=== PATIENT | male | born 1945 | race African-American/Black ===

== ENCOUNTER 2017-08-29 17:03 | Inpatient (IN) ==
[2017-08-29] MEDS ORDERED: Sod Chloride 0.9% Inj 1,000 ML IV.SIG ONE (22:24)
[2017-08-29] MEDS ORDERED: Morphine Inj 4 MG/ML Vial IV.PUSH ONE (22:24)
--- NOTE | 2017-08-29 22:35 | ED ---
HPI General Chief Complaint: Abdominal Pain Stated Complaint: L flank Pian Time Seen by Provider: 08/29/17 22:14 Source: patient Mode of arrival: ambulatory Limitations: no limitations History of Present Illness HPI narrative: 72-year-old black male history of IDDM, hypertension, hypercholesterolemia, and chronic renal failure stage III, and history of kidney stones in the past. Patient presents with a sudden onset of left flank pain which started earlier this morning. He states the pain is a 10/10. There is no exacerbating or alleviating factors. He has had associated nausea and vomiting. He denies any radiation of pain. He denies any abdominal or pelvic pain. No testicular pain. No hematuria. He does have some chronic urinary frequency but has had no dysuria. Patient has had a somewhat decreased appetite. MD complaint: flank pain (Left) Onset (ago): hour(s) Pain Consistency: constant Location: L flank Severity: severe Severity scale (1-10): 10 Quality: stabbing and sharp Radiation: none Migration to: no migration Relieving factors: nothing Exacerbating factors: nothing Associated symptoms: nausea and vomiting Related Data Home Medications Medication Instructions Recorded Confirmed albiglutide [Tanzeum] 50 mg SUB-Q Q7D 08/29/17 08/29/17 amlodipine 10 mg PO DAILY 08/29/17 08/29/17 atenolol 100 mg PO DAILY 08/29/17 08/29/17 empagliflozin [Jardiance] 25 mg PO DAILY 08/29/17 08/29/17 lisinopril 40 mg PO DAILY 08/29/17 08/29/17 pravastatin 10 mg PO HS 08/29/17 08/30/17 clonidine HCl 0.2 mg PO BID 08/30/17 08/30/17 glimepiride 4 mg PO BID 08/30/17 08/30/17 Previous Rx's Medication Instructions Recorded levofloxacin [Levaquin] 500 mg PO DAILY #7 tab 09/05/17 Allergies Allergy/AdvReac Type Severity Reaction Status Date / Time No Known Allergies Allergy Unverified 08/29/17 17:22 Review of Systems ROS Unobtainable All other systems reviewed negative except as stated [facility] Social History Social History Substance History: No History of Abuse Second Hand Smoke Exposure: Yes Smoking Status: Never smoker How Often Do You Have a Drink Containing Alcohol: Never Recent Travel in [facility] within the Last 8 Weeks: No Recent Out of Country Travel within the Last 8 Weeks: No Immunization History Tetanus Immunization: <5 Years Hx Influenza Vaccine This Season: Yes Exam Narrative Exam Narrative: GENERAL: Well-developed, well-nourished in no acute distress. Nontoxic appearing. Patient appears to have mild pain. Skin: Patient is somewhat clammy to touch. HEAD: Normocephalic, atraumatic. EYES: Pupils equal round and reactive. Extraocular motions intact. No scleral icterus. No injection or drainage. ENT: TMs clear without erythema. The external auditory canals clear. Nose: clear . Posterior pharynx is pink and moist. No tonsillar edema or exudate. Uvula midline. Airway patent. NECK: Trachea midline.Supple, nontender, moves head freely. No central bony tenderness or spasm. CARDIOVASCULAR: Regular rate and rhythm without murmurs, gallops, or rubs. RESPIRATORY: Clear to auscultation. Breath sounds equal bilaterally. No wheezes , rales, or rhonchi. GASTROINTESTINAL: Abdomen soft, non-tender, nondistended. No hepato-splenomegaly , or palpable masses. No guarding. EXTREMITIES: No clubbing, cyanosis, or edema. No joint tenderness, effusion, or edema noted. BACK: Nontender without deformity or crepitance. No flank tenderness. Course Hospital Course: EKG: Sinus tachycardia with a ventricular rate of 119. Old inferior wall Q waves consistent with possible old [place]. No abnormal ST elevation. Normal IN and QT interval. Initial Documented Vital Signs Temperature 99.1 F 08/29/17 17:15 Pulse Rate 87 08/29/17 17:15 Respiratory Rate 16 08/29/17 17:15 Blood Pressure 159/79 H 08/29/17 17:15 Pulse Oximetry 99 08/29/17 17:15 Last Documented Vital Signs Temperature 98.3 F 09/05/17 12:15 Pulse Rate 90 09/05/17 12:15 Respiratory Rate 18 09/05/17 12:15 Blood Pressure 129/69 09/05/17 12:15 Pulse Oximetry 98 09/05/17 12:15 Medical Decision Making Differential Diagnosis Differential Diagnosis: Differential diagnosis: Ureterolithiasis, nephrolithiasis, intra-abdominal process, electrolyte abnormality, infection Lab Data Result diagrams: 09/05/17 06:10 09/05/17 06:10 Lab Results 08/29/17 08/29/17 08/29/17 Range/Units 22:41 22:41 23:00 WBC 17.2 H (4.0-11.0) th/mm3 RBC 5.09 (4.50-5.90) mil/mm3 Hgb 14.8 (13.0-17.0) gm/dL Hct 44.4 (39.0-51.0) % MCV 87.2 (80.0-100.0) fL MCH 29.1 (27.0-34.0) pg MCHC 33.3 (32.0-36.0) % RDW 13.4 (11.6-17.2) % Plt Count 261 (150-450) th/mm3 MPV 8.8 (7.0-11.0) fL Prelim Diff (Auto) Slide review pending Neut % (Auto) 97.3 H (16.0-70.0) % Lymph % (Auto) 1.1 L (9.0-44.0) % [place] % (Auto) 1.3 (0.0-8.0) % Eos % (Auto) 0.0 (0.0-4.0) % Baso % (Auto) 0.3 (0.0-2.0) % Neut # (Auto) 16.7 H (1.8-7.7) th/mm3 Lymph # (Auto) 0.2 L (1.0-4.8) th/mm3 [place] # (Auto) 0.2 (0.0-0.9) th/mm3 Eos # (Auto) 0.0 (0.0-0.4) th/mm3 Baso # (Auto) 0.0 (0.0-0.2) th/mm3 WBC Differential Manual diff final Diff Scan Seg Neuts % (Manual) 85 H (16-70) % Band Neuts % (Manual) 10 H (0-6) % Lymphocytes % (Manual) 1 L (9-44) % Monocytes % (Manual) 4 (0-8) % Basophils % (Manual) (0-2) % Metamyelocytes % (Man) (0-1) % Myelocytes % (Man) (0-0) % Abs Neuts (Manual) 16.3 H (1.8-7.7) th/mm3 Differential Comment . Platelet Estimate Normal (Normal) Platelet Morphology Normal (Normal) RBC Morphology Normal (Normal) Sodium 145 (136-145) meq/L Potassium 3.8 (3.5-5.1) meq/L Chloride 112 H (98-107) meq/L Carbon Dioxide 17.7 L (21.0-32.0) meq/L Anion Gap 15 (5-15) meq/L BUN 24 H (7-18) mg/dL Creatinine 2.36 H (0.60-1.30) mg/dL Estimated GFR 33 L (>89) mL/min POC Glucose (68-110) mg/dl Random Glucose 201 H (74-106) mg/dL Calcium 9.6 (8.5-10.1) mg/dL Prot Corrected Calcium (8.5-10.1) mg/dL Magnesium (1.5-2.5) mg/dL Total Bilirubin 0.8 (0.2-1.0) mg/dL AST 25 (15-37) U/L ALT 45 (12-78) U/L Alkaline Phosphatase 112 (45-117) U/L Total Protein 8.1 (6.4-8.2) g/dL Albumin 3.8 (3.4-5.0) g/dL Lipase 244 (73-393) U/L Urine Color Yellow (Yellw/Straw) Urine Clarity Hazy H (Clear) Urine pH 5.0 (5.0-8.5) Ur Specific [place] 1.015 (1.002-1.035) Urine Protein Negative (Neg-Trace) mg/dL Urine Glucose (UA) 500 or greater (Negative) mg/dL Urine Ketones Trace (Negative) mg/dL Urine Occult Blood Large H (Negative) Urine Nitrate Negative (Negative) Urine Bilirubin Negative (Negative) Urine Urobilinogen Less than 2 (Less than 2) mg/dL Ur Leukocyte Esterase Trace H (Negative) Urine RBC 44 H (0-3) /hpf Urine WBC 23 H (0-5) /hpf Ur Squamous Epith Cells 1 (0-5) /hpf Urine Bacteria Rare H (None) /hpf Urine Mucus Few H (Occasional) /lpf Micro UA Comment Culture indicated Urine Culture Comments Culture indicated 08/30/17 08/30/17 08/30/17 Range/Units 09:40 09:40 16:44 WBC 25.6 H (4.0-11.0) th/mm3 RBC 4.93 (4.50-5.90) mil/mm3 Hgb 15.1 (13.0-17.0) gm/dL Hct 44.1 (39.0-51.0) % MCV 89.4 (80.0-100.0) fL MCH 30.6 (27.0-34.0) pg MCHC 34.3 (32.0-36.0) % RDW 14.0 (11.6-17.2) % Plt Count 268 (150-450) th/mm3 MPV 8.8 (7.0-11.0) fL Prelim Diff (Auto) Manual diff required Neut % (Auto) (16.0-70.0) % Lymph % (Auto) (9.0-44.0) % [place] % (Auto) (0.0-8.0) % Eos % (Auto) (0.0-4.0) % Baso % (Auto) (0.0-2.0) % Neut # (Auto) (1.8-7.7) th/mm3 Lymph # (Auto) (1.0-4.8) th/mm3 [place] # (Auto) (0.0-0.9) th/mm3 Eos # (Auto) (0.0-0.4) th/mm3 Baso # (Auto) (0.0-0.2) th/mm3 WBC Differential Manual diff final Diff Scan Seg Neuts % (Manual) 62 (16-70) % Band Neuts % (Manual) 36 H (0-6) % Lymphocytes % (Manual) 2 L (9-44) % Monocytes % (Manual) (0-8) % Basophils % (Manual) (0-2) % Metamyelocytes % (Man) (0-1) % Myelocytes % (Man) (0-0) % Abs Neuts (Manual) 25.1 H (1.8-7.7) th/mm3 Differential Comment . Platelet Estimate Normal (Normal) Platelet Morphology Normal (Normal) RBC Morphology Normal (Normal) Sodium 151 H (136-145) meq/L Potassium 3.7 (3.5-5.1) meq/L Chloride 119 H (98-107) meq/L Carbon Dioxide 18.9 L (21.0-32.0) meq/L Anion Gap 13 (5-15) meq/L BUN 23 H (7-18) mg/dL Creatinine 2.25 H (0.60-1.30) mg/dL Estimated GFR 35 L (>89) mL/min POC Glucose 320 H (68-110) mg/dl Random Glucose 184 H (74-106) mg/dL Calcium 7.4 L* D (8.5-10.1) mg/dL Prot Corrected Calcium 7.7 L (8.5-10.1) mg/dL Magnesium (1.5-2.5) mg/dL Total Bilirubin (0.2-1.0) mg/dL AST (15-37) U/L ALT (12-78) U/L Alkaline Phosphatase (45-117) U/L Total Protein 6.6 D (6.4-8.2) g/dL Albumin (3.4-5.0) g/dL Lipase (73-393) U/L Urine Color (Yellw/Straw) Urine Clarity (Clear) Urine pH (5.0-8.5) Ur Specific [place] (1.002-1.035) Urine Protein (Neg-Trace) mg/dL Urine Glucose (UA) (Negative) mg/dL Urine Ketones (Negative) mg/dL Urine Occult Blood (Negative) Urine Nitrate (Negative) Urine Bilirubin (Negative) Urine Urobilinogen (Less than 2) mg/dL Ur Leukocyte Esterase (Negative) Urine RBC (0-3) /hpf Urine WBC (0-5) /hpf Ur Squamous Epith Cells (0-5) /hpf Urine Bacteria (None) /hpf Urine Mucus (Occasional) /lpf Micro UA Comment Urine Culture Comments 08/30/17 08/31/17 08/31/17 Range/Units 21:02 03:55 05:21 WBC 35.8 H (4.0-11.0) th/mm3 RBC 4.65 (4.50-5.90) mil/mm3 Hgb 13.6 (13.0-17.0) gm/dL Hct 41.4 (39.0-51.0) % MCV 89.1 (80.0-100.0) fL MCH 29.2 (27.0-34.0) pg MCHC 32.8 (32.0-36.0) % RDW 13.8 (11.6-17.2) % Plt Count 209 (150-450) th/mm3 MPV 9.1 (7.0-11.0) fL Prelim Diff (Auto) Slide review pending Neut % (Auto) 94.0 H (16.0-70.0) % Lymph % (Auto) 2.8 L (9.0-44.0) % [place] % (Auto) 3.1 (0.0-8.0) % Eos % (Auto) 0.0 (0.0-4.0) % Baso % (Auto) 0.1 (0.0-2.0) % Neut # (Auto) 33.7 H (1.8-7.7) th/mm3 Lymph # (Auto) 1.0 (1.0-4.8) th/mm3 [place] # (Auto) 1.1 H (0.0-0.9) th/mm3 Eos # (Auto) 0.0 (0.0-0.4) th/mm3 Baso # (Auto) 0.0 (0.0-0.2) th/mm3 WBC Differential Manual diff final Diff Scan Seg Neuts % (Manual) 56 (16-70) % Band Neuts % (Manual) 36 H (0-6) % Lymphocytes % (Manual) 4 L (9-44) % Monocytes % (Manual) 3 (0-8) % Basophils % (Manual) (0-2) % Metamyelocytes % (Man) 1 (0-1) % Myelocytes % (Man) (0-0) % Abs Neuts (Manual) 33.3 H (1.8-7.7) th/mm3 Differential Comment . Platelet Estimate Normal (Normal) Platelet Morphology Normal (Normal) RBC Morphology Normal (Normal) Sodium (136-145) meq/L Potassium (3.5-5.1) meq/L Chloride (98-107) meq/L Carbon Dioxide (21.0-32.0) meq/L Anion Gap (5-15) meq/L BUN (7-18) mg/dL Creatinine (0.60-1.30) mg/dL Estimated GFR (>89) mL/min POC Glucose 206 H 160 H (68-110) mg/dl Random Glucose (74-106) mg/dL Calcium (8.5-10.1) mg/dL Prot Corrected Calcium (8.5-10.1) mg/dL Magnesium (1.5-2.5) mg/dL Total Bilirubin (0.2-1.0) mg/dL AST (15-37) U/L ALT (12-78) U/L Alkaline Phosphatase (45-117) U/L Total Protein (6.4-8.2) g/dL Albumin (3.4-5.0) g/dL Lipase (73-393) U/L Urine Color (Yellw/Straw) Urine Clarity (Clear) Urine pH (5.0-8.5) Ur Specific [place] (1.002-1.035) Urine Protein (Neg-Trace) mg/dL Urine Glucose (UA) (Negative) mg/dL Urine Ketones (Negative) mg/dL Urine Occult Blood (Negative) Urine Nitrate (Negative) Urine Bilirubin (Negative) Urine Urobilinogen (Less than 2) mg/dL Ur Leukocyte Esterase (Negative) Urine RBC (0-3) /hpf Urine WBC (0-5) /hpf Ur Squamous Epith Cells (0-5) /hpf Urine Bacteria (None) /hpf Urine Mucus (Occasional) /lpf Micro UA Comment Urine Culture Comments 08/31/17 08/31/17 08/31/17 Range/Units 05:21 08:30 11:46 WBC (4.0-11.0) th/mm3 RBC (4.50-5.90) mil/mm3 Hgb (13.0-17.0) gm/dL Hct (39.0-51.0) % MCV (80.0-100.0) fL MCH (27.0-34.0) pg MCHC (32.0-36.0) % RDW (11.6-17.2) % Plt Count (150-450) th/mm3 MPV (7.0-11.0) fL Prelim Diff (Auto) Neut % (Auto) (16.0-70.0) % Lymph % (Auto) (9.0-44.0) % [place] % (Auto) (0.0-8.0) % Eos % (Auto) (0.0-4.0) % Baso % (Auto) (0.0-2.0) % Neut # (Auto) (1.8-7.7) th/mm3 Lymph # (Auto) (1.0-4.8) th/mm3 [place] # (Auto) (0.0-0.9) th/mm3 Eos # (Auto) (0.0-0.4) th/mm3 Baso # (Auto) (0.0-0.2) th/mm3 WBC Differential Diff Scan Seg Neuts % (Manual) (16-70) % Band Neuts % (Manual) (0-6) % Lymphocytes % (Manual) (9-44) % Monocytes % (Manual) (0-8) % Basophils % (Manual) (0-2) % Metamyelocytes % (Man) (0-1) % Myelocytes % (Man) (0-0) % Abs Neuts (Manual) (1.8-7.7) th/mm3 Differential Comment Platelet Estimate (Normal) Platelet Morphology (Normal) RBC Morphology (Normal) Sodium 147 H (136-145) meq/L Potassium 4.0 (3.5-5.1) meq/L Chloride 112 H (98-107) meq/L Carbon Dioxide 22.9 (21.0-32.0) meq/L Anion Gap 12 (5-15) meq/L BUN 38 H (7-18) mg/dL Creatinine 3.27 H (0.60-1.30) mg/dL Estimated GFR 23 L (>89) mL/min POC Glucose 123 H 255 H (68-110) mg/dl Random Glucose 127 H (74-106) mg/dL Calcium 8.7 D (8.5-10.1) mg/dL Prot Corrected Calcium (8.5-10.1) mg/dL Magnesium (1.5-2.5) mg/dL Total Bilirubin (0.2-1.0) mg/dL AST (15-37) U/L ALT (12-78) U/L Alkaline Phosphatase (45-117) U/L Total Protein (6.4-8.2) g/dL Albumin (3.4-5.0) g/dL Lipase (73-393) U/L Urine Color (Yellw/Straw) Urine Clarity (Clear) Urine pH (5.0-8.5) Ur Specific [place] (1.002-1.035) Urine Protein (Neg-Trace) mg/dL Urine Glucose (UA) (Negative) mg/dL Urine Ketones (Negative) mg/dL Urine Occult Blood (Negative) Urine Nitrate (Negative) Urine Bilirubin (Negative) Urine Urobilinogen (Less than 2) mg/dL Ur Leukocyte Esterase (Negative) Urine RBC (0-3) /hpf Urine WBC (0-5) /hpf Ur Squamous Epith Cells (0-5) /hpf Urine Bacteria (None) /hpf Urine Mucus (Occasional) /lpf Micro UA Comment Urine Culture Comments 08/31/17 08/31/17 08/31/17 Range/Units 17:10 19:55 21:13 WBC (4.0-11.0) th/mm3 RBC (4.50-5.90) mil/mm3 Hgb (13.0-17.0) gm/dL Hct (39.0-51.0) % MCV (80.0-100.0) fL MCH (27.0-34.0) pg MCHC (32.0-36.0) % RDW (11.6-17.2) % Plt Count (150-450) th/mm3 MPV (7.0-11.0) fL Prelim Diff (Auto) Neut % (Auto) (16.0-70.0) % Lymph % (Auto) (9.0-44.0) % [place] % (Auto) (0.0-8.0) % Eos % (Auto) (0.0-4.0) % Baso % (Auto) (0.0-2.0) % Neut # (Auto) (1.8-7.7) th/mm3 Lymph # (Auto) (1.0-4.8) th/mm3 [place] # (Auto) (0.0-0.9) th/mm3 Eos # (Auto) (0.0-0.4) th/mm3 Baso # (Auto) (0.0-0.2) th/mm3 WBC Differential Diff Scan Seg Neuts % (Manual) (16-70) % Band Neuts % (Manual) (0-6) % Lymphocytes % (Manual) (9-44) % Monocytes % (Manual) (0-8) % Basophils % (Manual) (0-2) % Metamyelocytes % (Man) (0-1) % Myelocytes % (Man) (0-0) % Abs Neuts (Manual) (1.8-7.7) th/mm3 Differential Comment Platelet Estimate (Normal) Platelet Morphology (Normal) RBC Morphology (Normal) Sodium 146 H (136-145) meq/L Potassium 4.1 (3.5-5.1) meq/L Chloride 113 H (98-107) meq/L Carbon Dioxide 23.1 (21.0-32.0) meq/L Anion Gap 10 (5-15) meq/L BUN 37 H (7-18) mg/dL Creatinine 2.67 H (0.60-1.30) mg/dL Estimated GFR 29 L (>89) mL/min POC Glucose 225 H 218 H (68-110) mg/dl Random Glucose 214 H (74-106) mg/dL Calcium 8.9 (8.5-10.1) mg/dL Prot Corrected Calcium (8.5-10.1) mg/dL Magnesium (1.5-2.5) mg/dL Total Bilirubin (0.2-1.0) mg/dL AST (15-37) U/L ALT (12-78) U/L Alkaline Phosphatase (45-117) U/L Total Protein (6.4-8.2) g/dL Albumin (3.4-5.0) g/dL Lipase (73-393) U/L Urine Color (Yellw/Straw) Urine Clarity (Clear) Urine pH (5.0-8.5) Ur Specific [place] (1.002-1.035) Urine Protein (Neg-Trace) mg/dL Urine Glucose (UA) (Negative) mg/dL Urine Ketones (Negative) mg/dL Urine Occult Blood (Negative) Urine Nitrate (Negative) Urine Bilirubin (Negative) Urine Urobilinogen (Less than 2) mg/dL Ur Leukocyte Esterase (Negative) Urine RBC (0-3) /hpf Urine WBC (0-5) /hpf Ur Squamous Epith Cells (0-5) /hpf Urine Bacteria (None) /hpf Urine Mucus (Occasional) /lpf Micro UA Comment Urine Culture Comments 09/01/17 09/01/17 09/01/17 Range/Units 06:46 06:46 07:37 WBC 26.9 H (4.0-11.0) th/mm3 RBC 4.83 (4.50-5.90) mil/mm3 Hgb 14.2 (13.0-17.0) gm/dL Hct 43.4 (39.0-51.0) % MCV 89.7 (80.0-100.0) fL MCH 29.4 (27.0-34.0) pg MCHC 32.8 (32.0-36.0) % RDW 13.7 (11.6-17.2) % Plt Count 197 (150-450) th/mm3 MPV 9.2 (7.0-11.0) fL Prelim Diff (Auto) Neut % (Auto) 91.6 H (16.0-70.0) % Lymph % (Auto) 3.5 L (9.0-44.0) % [place] % (Auto) 4.9 (0.0-8.0) % Eos % (Auto) 0.0 (0.0-4.0) % Baso % (Auto) 0.0 (0.0-2.0) % Neut # (Auto) 24.6 H (1.8-7.7) th/mm3 Lymph # (Auto) 0.9 L (1.0-4.8) th/mm3 [place] # (Auto) 1.3 H (0.0-0.9) th/mm3 Eos # (Auto) 0.0 (0.0-0.4) th/mm3 Baso # (Auto) 0.0 (0.0-0.2) th/mm3 WBC Differential . Diff Scan Seg Neuts % (Manual) (16-70) % Band Neuts % (Manual) (0-6) % Lymphocytes % (Manual) (9-44) % Monocytes % (Manual) (0-8) % Basophils % (Manual) (0-2) % Metamyelocytes % (Man) (0-1) % Myelocytes % (Man) (0-0) % Abs Neuts (Manual) (1.8-7.7) th/mm3 Differential Comment Auto diff final Platelet Estimate (Normal) Platelet Morphology (Normal) RBC Morphology (Normal) Sodium 148 H (136-145) meq/L Potassium 4.1 (3.5-5.1) meq/L Chloride 116 H (98-107) meq/L Carbon Dioxide 21.1 (21.0-32.0) meq/L Anion Gap 11 (5-15) meq/L BUN 34 H (7-18) mg/dL Creatinine 2.25 H (0.60-1.30) mg/dL Estimated GFR 35 L (>89) mL/min POC Glucose 150 H (68-110) mg/dl Random Glucose 162 H (74-106) mg/dL Calcium 9.0 (8.5-10.1) mg/dL Prot Corrected Calcium (8.5-10.1) mg/dL Magnesium (1.5-2.5) mg/dL Total Bilirubin (0.2-1.0) mg/dL AST (15-37) U/L ALT (12-78) U/L Alkaline Phosphatase (45-117) U/L Total Protein (6.4-8.2) g/dL Albumin (3.4-5.0) g/dL Lipase (73-393) U/L Urine Color (Yellw/Straw) Urine Clarity (Clear) Urine pH (5.0-8.5) Ur Specific [place] (1.002-1.035) Urine Protein (Neg-Trace) mg/dL Urine Glucose (UA) (Negative) mg/dL Urine Ketones (Negative) mg/dL Urine Occult Blood (Negative) Urine Nitrate (Negative) Urine Bilirubin (Negative) Urine Urobilinogen (Less than 2) mg/dL Ur Leukocyte Esterase (Negative) Urine RBC (0-3) /hpf Urine WBC (0-5) /hpf Ur Squamous Epith Cells (0-5) /hpf Urine Bacteria (None) /hpf Urine Mucus (Occasional) /lpf Micro UA Comment Urine Culture Comments 09/01/17 09/01/17 09/01/17 Range/Units 11:53 17:41 20:44 WBC (4.0-11.0) th/mm3 RBC (4.50-5.90) mil/mm3 Hgb (13.0-17.0) gm/dL Hct (39.0-51.0) % MCV (80.0-100.0) fL MCH (27.0-34.0) pg MCHC (32.0-36.0) % RDW (11.6-17.2) % Plt Count (150-450) th/mm3 MPV (7.0-11.0) fL Prelim Diff (Auto) Neut % (Auto) (16.0-70.0) % Lymph % (Auto) (9.0-44.0) % [place] % (Auto) (0.0-8.0) % Eos % (Auto) (0.0-4.0) % Baso % (Auto) (0.0-2.0) % Neut # (Auto) (1.8-7.7) th/mm3 Lymph # (Auto) (1.0-4.8) th/mm3 [place] # (Auto) (0.0-0.9) th/mm3 Eos # (Auto) (0.0-0.4) th/mm3 Baso # (Auto) (0.0-0.2) th/mm3 WBC Differential Diff Scan Seg Neuts % (Manual) (16-70) % Band Neuts % (Manual) (0-6) % Lymphocytes % (Manual) (9-44) % Monocytes % (Manual) (0-8) % Basophils % (Manual) (0-2) % Metamyelocytes % (Man) (0-1) % Myelocytes % (Man) (0-0) % Abs Neuts (Manual) (1.8-7.7) th/mm3 Differential Comment Platelet Estimate (Normal) Platelet Morphology (Normal) RBC Morphology (Normal) Sodium (136-145) meq/L Potassium (3.5-5.1) meq/L Chloride (98-107) meq/L Carbon Dioxide (21.0-32.0) meq/L Anion Gap (5-15) meq/L BUN (7-18) mg/dL Creatinine (0.60-1.30) mg/dL Estimated GFR (>89) mL/min POC Glucose 260 H 219 H 179 H (68-110) mg/dl Random Glucose (74-106) mg/dL Calcium (8.5-10.1) mg/dL Prot Corrected Calcium (8.5-10.1) mg/dL Magnesium (1.5-2.5) mg/dL Total Bilirubin (0.2-1.0) mg/dL AST (15-37) U/L ALT (12-78) U/L Alkaline Phosphatase (45-117) U/L Total Protein (6.4-8.2) g/dL Albumin (3.4-5.0) g/dL Lipase (73-393) U/L Urine Color (Yellw/Straw) Urine Clarity (Clear) Urine pH (5.0-8.5) Ur Specific [place] (1.002-1.035) Urine Protein (Neg-Trace) mg/dL Urine Glucose (UA) (Negative) mg/dL Urine Ketones (Negative) mg/dL Urine Occult Blood (Negative) Urine Nitrate (Negative) Urine Bilirubin (Negative) Urine Urobilinogen (Less than 2) mg/dL Ur Leukocyte Esterase (Negative) Urine RBC (0-3) /hpf Urine WBC (0-5) /hpf Ur Squamous Epith Cells (0-5) /hpf Urine Bacteria (None) /hpf Urine Mucus (Occasional) /lpf Micro UA Comment Urine Culture Comments 09/02/17 09/02/17 09/02/17 Range/Units 06:15 06:15 07:24 WBC 13.2 H D (4.0-11.0) th/mm3 RBC 5.08 (4.50-5.90) mil/mm3 Hgb 14.8 (13.0-17.0) gm/dL Hct 45.7 (39.0-51.0) % MCV 89.9 (80.0-100.0) fL MCH 29.2 (27.0-34.0) pg MCHC 32.5 (32.0-36.0) % RDW 14.2 (11.6-17.2) % Plt Count 199 (150-450) th/mm3 MPV 9.5 (7.0-11.0) fL Prelim Diff (Auto) Slide review pending Neut % (Auto) 82.6 H (16.0-70.0) % Lymph % (Auto) 9.1 (9.0-44.0) % [place] % (Auto) 7.8 (0.0-8.0) % Eos % (Auto) 0.2 (0.0-4.0) % Baso % (Auto) 0.3 (0.0-2.0) % Neut # (Auto) 10.9 H (1.8-7.7) th/mm3 Lymph # (Auto) 1.2 (1.0-4.8) th/mm3 [place] # (Auto) 1.0 H (0.0-0.9) th/mm3 Eos # (Auto) 0.0 (0.0-0.4) th/mm3 Baso # (Auto) 0.0 (0.0-0.2) th/mm3 WBC Differential Manual diff final Diff Scan Seg Neuts % (Manual) 77 H (16-70) % Band Neuts % (Manual) 6 (0-6) % Lymphocytes % (Manual) 10 (9-44) % Monocytes % (Manual) 6 (0-8) % Basophils % (Manual) 1 (0-2) % Metamyelocytes % (Man) (0-1) % Myelocytes % (Man) (0-0) % Abs Neuts (Manual) 11.0 H (1.8-7.7) th/mm3 Differential Comment . Platelet Estimate Normal (Normal) Platelet Morphology Normal (Normal) RBC Morphology (Normal) Sodium 148 H (136-145) meq/L Potassium 3.9 (3.5-5.1) meq/L Chloride 115 H (98-107) meq/L Carbon Dioxide 23.1 (21.0-32.0) meq/L Anion Gap 10 (5-15) meq/L BUN 27 H (7-18) mg/dL Creatinine 2.03 H (0.60-1.30) mg/dL Estimated GFR 39 L (>89) mL/min POC Glucose 152 H (68-110) mg/dl Random Glucose 186 H (74-106) mg/dL Calcium 8.9 (8.5-10.1) mg/dL Prot Corrected Calcium (8.5-10.1) mg/dL Magnesium (1.5-2.5) mg/dL Total Bilirubin (0.2-1.0) mg/dL AST (15-37) U/L ALT (12-78) U/L Alkaline Phosphatase (45-117) U/L Total Protein (6.4-8.2) g/dL Albumin (3.4-5.0) g/dL Lipase (73-393) U/L Urine Color (Yellw/Straw) Urine Clarity (Clear) Urine pH (5.0-8.5) Ur Specific [place] (1.002-1.035) Urine Protein (Neg-Trace) mg/dL Urine Glucose (UA) (Negative) mg/dL Urine Ketones (Negative) mg/dL Urine Occult Blood (Negative) Urine Nitrate (Negative) Urine Bilirubin (Negative) Urine Urobilinogen (Less than 2) mg/dL Ur Leukocyte Esterase (Negative) Urine RBC (0-3) /hpf Urine WBC (0-5) /hpf Ur Squamous Epith Cells (0-5) /hpf Urine Bacteria (None) /hpf Urine Mucus (Occasional) /lpf Micro UA Comment Urine Culture Comments 09/02/17 09/02/17 09/02/17 Range/Units 11:18 13:50 16:19 WBC (4.0-11.0) th/mm3 RBC (4.50-5.90) mil/mm3 Hgb (13.0-17.0) gm/dL Hct (39.0-51.0) % MCV (80.0-100.0) fL MCH (27.0-34.0) pg MCHC (32.0-36.0) % RDW (11.6-17.2) % Plt Count (150-450) th/mm3 MPV (7.0-11.0) fL Prelim Diff (Auto) Neut % (Auto) (16.0-70.0) % Lymph % (Auto) (9.0-44.0) % [place] % (Auto) (0.0-8.0) % Eos % (Auto) (0.0-4.0) % Baso % (Auto) (0.0-2.0) % Neut # (Auto) (1.8-7.7) th/mm3 Lymph # (Auto) (1.0-4.8) th/mm3 [place] # (Auto) (0.0-0.9) th/mm3 Eos # (Auto) (0.0-0.4) th/mm3 Baso # (Auto) (0.0-0.2) th/mm3 WBC Differential Diff Scan Seg Neuts % (Manual) (16-70) % Band Neuts % (Manual) (0-6) % Lymphocytes % (Manual) (9-44) % Monocytes % (Manual) (0-8) % Basophils % (Manual) (0-2) % Metamyelocytes % (Man) (0-1) % Myelocytes % (Man) (0-0) % Abs Neuts (Manual) (1.8-7.7) th/mm3 Differential Comment Platelet Estimate (Normal) Platelet Morphology (Normal) RBC Morphology (Normal) Sodium 145 (136-145) meq/L Potassium 4.1 (3.5-5.1) meq/L Chloride 112 H (98-107) meq/L Carbon Dioxide 23.1 (21.0-32.0) meq/L Anion Gap 10 (5-15) meq/L BUN 27 H (7-18) mg/dL Creatinine 2.07 H (0.60-1.30) mg/dL Estimated GFR 38 L (>89) mL/min POC Glucose 239 H 231 H (68-110) mg/dl Random Glucose 239 H (74-106) mg/dL Calcium 9.2 (8.5-10.1) mg/dL Prot Corrected Calcium (8.5-10.1) mg/dL Magnesium (1.5-2.5) mg/dL Total Bilirubin (0.2-1.0) mg/dL AST (15-37) U/L ALT (12-78) U/L Alkaline Phosphatase (45-117) U/L Total Protein (6.4-8.2) g/dL Albumin (3.4-5.0) g/dL Lipase (73-393) U/L Urine Color (Yellw/Straw) Urine Clarity (Clear) Urine pH (5.0-8.5) Ur Specific [place] (1.002-1.035) Urine Protein (Neg-Trace) mg/dL Urine Glucose (UA) (Negative) mg/dL Urine Ketones (Negative) mg/dL Urine Occult Blood (Negative) Urine Nitrate (Negative) Urine Bilirubin (Negative) Urine Urobilinogen (Less than 2) mg/dL Ur Leukocyte Esterase (Negative) Urine RBC (0-3) /hpf Urine WBC (0-5) /hpf Ur Squamous Epith Cells (0-5) /hpf Urine Bacteria (None) /hpf Urine Mucus (Occasional) /lpf Micro UA Comment Urine Culture Comments 09/02/17 09/03/17 09/03/17 Range/Units 21:01 04:07 04:07 WBC 9.9 (4.0-11.0) th/mm3 RBC 5.05 (4.50-5.90) mil/mm3 Hgb 15.1 (13.0-17.0) gm/dL Hct 45.0 (39.0-51.0) % MCV 89.0 (80.0-100.0) fL MCH 29.8 (27.0-34.0) pg MCHC 33.5 (32.0-36.0) % RDW 14.1 (11.6-17.2) % Plt Count 198 (150-450) th/mm3 MPV 9.3 (7.0-11.0) fL Prelim Diff (Auto) Slide review pending Neut % (Auto) 78.7 H (16.0-70.0) % Lymph % (Auto) 11.7 (9.0-44.0) % [place] % (Auto) 9.1 H (0.0-8.0) % Eos % (Auto) 0.2 (0.0-4.0) % Baso % (Auto) 0.3 (0.0-2.0) % Neut # (Auto) 7.7 (1.8-7.7) th/mm3 Lymph # (Auto) 1.2 (1.0-4.8) th/mm3 [place] # (Auto) 0.9 (0.0-0.9) th/mm3 Eos # (Auto) 0.0 (0.0-0.4) th/mm3 Baso # (Auto) 0.0 (0.0-0.2) th/mm3 WBC Differential . Diff Scan Auto diff confirmed Seg Neuts % (Manual) (16-70) % Band Neuts % (Manual) (0-6) % Lymphocytes % (Manual) (9-44) % Monocytes % (Manual) (0-8) % Basophils % (Manual) (0-2) % Metamyelocytes % (Man) (0-1) % Myelocytes % (Man) (0-0) % Abs Neuts (Manual) (1.8-7.7) th/mm3 Differential Comment . Platelet Estimate (Normal) Platelet Morphology (Normal) RBC Morphology (Normal) Sodium 147 H (136-145) meq/L Potassium 3.9 (3.5-5.1) meq/L Chloride 115 H (98-107) meq/L Carbon Dioxide 23.9 (21.0-32.0) meq/L Anion Gap 8 (5-15) meq/L BUN 26 H (7-18) mg/dL Creatinine 1.74 H (0.60-1.30) mg/dL Estimated GFR 47 L (>89) mL/min POC Glucose 183 H (68-110) mg/dl Random Glucose 156 H (74-106) mg/dL Calcium 8.8 (8.5-10.1) mg/dL Prot Corrected Calcium (8.5-10.1) mg/dL Magnesium (1.5-2.5) mg/dL Total Bilirubin (0.2-1.0) mg/dL AST (15-37) U/L ALT (12-78) U/L Alkaline Phosphatase (45-117) U/L Total Protein (6.4-8.2) g/dL Albumin (3.4-5.0) g/dL Lipase (73-393) U/L Urine Color (Yellw/Straw) Urine Clarity (Clear) Urine pH (5.0-8.5) Ur Specific [place] (1.002-1.035) Urine Protein (Neg-Trace) mg/dL Urine Glucose (UA) (Negative) mg/dL Urine Ketones (Negative) mg/dL Urine Occult Blood (Negative) Urine Nitrate (Negative) Urine Bilirubin (Negative) Urine Urobilinogen (Less than 2) mg/dL Ur Leukocyte Esterase (Negative) Urine RBC (0-3) /hpf Urine WBC (0-5) /hpf Ur Squamous Epith Cells (0-5) /hpf Urine Bacteria (None) /hpf Urine Mucus (Occasional) /lpf Micro UA Comment Urine Culture Comments 09/03/17 09/03/17 09/03/17 Range/Units 08:07 11:36 16:22 WBC (4.0-11.0) th/mm3 RBC (4.50-5.90) mil/mm3 Hgb (13.0-17.0) gm/dL Hct (39.0-51.0) % MCV (80.0-100.0) fL MCH (27.0-34.0) pg MCHC (32.0-36.0) % RDW (11.6-17.2) % Plt Count (150-450) th/mm3 MPV (7.0-11.0) fL Prelim Diff (Auto) Neut % (Auto) (16.0-70.0) % Lymph % (Auto) (9.0-44.0) % [place] % (Auto) (0.0-8.0) % Eos % (Auto) (0.0-4.0) % Baso % (Auto) (0.0-2.0) % Neut # (Auto) (1.8-7.7) th/mm3 Lymph # (Auto) (1.0-4.8) th/mm3 [place] # (Auto) (0.0-0.9) th/mm3 Eos # (Auto) (0.0-0.4) th/mm3 Baso # (Auto) (0.0-0.2) th/mm3 WBC Differential Diff Scan Seg Neuts % (Manual) (16-70) % Band Neuts % (Manual) (0-6) % Lymphocytes % (Manual) (9-44) % Monocytes % (Manual) (0-8) % Basophils % (Manual) (0-2) % Metamyelocytes % (Man) (0-1) % Myelocytes % (Man) (0-0) % Abs Neuts (Manual) (1.8-7.7) th/mm3 Differential Comment Platelet Estimate (Normal) Platelet Morphology (Normal) RBC Morphology (Normal) Sodium (136-145) meq/L Potassium (3.5-5.1) meq/L Chloride (98-107) meq/L Carbon Dioxide (21.0-32.0) meq/L Anion Gap (5-15) meq/L BUN (7-18) mg/dL Creatinine (0.60-1.30) mg/dL Estimated GFR (>89) mL/min POC Glucose 167 H 250 H 246 H (68-110) mg/dl Random Glucose (74-106) mg/dL Calcium (8.5-10.1) mg/dL Prot Corrected Calcium (8.5-10.1) mg/dL Magnesium (1.5-2.5) mg/dL Total Bilirubin (0.2-1.0) mg/dL AST (15-37) U/L ALT (12-78) U/L Alkaline Phosphatase (45-117) U/L Total Protein (6.4-8.2) g/dL Albumin (3.4-5.0) g/dL Lipase (73-393) U/L Urine Color (Yellw/Straw) Urine Clarity (Clear) Urine pH (5.0-8.5) Ur Specific [place] (1.002-1.035) Urine Protein (Neg-Trace) mg/dL Urine Glucose (UA) (Negative) mg/dL Urine Ketones (Negative) mg/dL Urine Occult Blood (Negative) Urine Nitrate (Negative) Urine Bilirubin (Negative) Urine Urobilinogen (Less than 2) mg/dL Ur Leukocyte Esterase (Negative) Urine RBC (0-3) /hpf Urine WBC (0-5) /hpf Ur Squamous Epith Cells (0-5) /hpf Urine Bacteria (None) /hpf Urine Mucus (Occasional) /lpf Micro UA Comment Urine Culture Comments 09/03/17 09/04/17 09/04/17 Range/Units 19:55 06:02 06:02 WBC 9.1 (4.0-11.0) th/mm3 RBC 5.04 (4.50-5.90) mil/mm3 Hgb 14.9 (13.0-17.0) gm/dL Hct 44.9 (39.0-51.0) % MCV 89.2 (80.0-100.0) fL MCH 29.7 (27.0-34.0) pg MCHC 33.3 (32.0-36.0) % RDW 14.1 (11.6-17.2) % Plt Count 213 (150-450) th/mm3 MPV 8.9 (7.0-11.0) fL Prelim Diff (Auto) Slide review pending Neut % (Auto) 78.1 H (16.0-70.0) % Lymph % (Auto) 11.1 (9.0-44.0) % [place] % (Auto) 9.8 H (0.0-8.0) % Eos % (Auto) 0.5 (0.0-4.0) % Baso % (Auto) 0.5 (0.0-2.0) % Neut # (Auto) 7.1 (1.8-7.7) th/mm3 Lymph # (Auto) 1.0 (1.0-4.8) th/mm3 [place] # (Auto) 0.9 (0.0-0.9) th/mm3 Eos # (Auto) 0.0 (0.0-0.4) th/mm3 Baso # (Auto) 0.0 (0.0-0.2) th/mm3 WBC Differential Manual diff final Diff Scan Seg Neuts % (Manual) 68 (16-70) % Band Neuts % (Manual) 1 (0-6) % Lymphocytes % (Manual) 13 (9-44) % Monocytes % (Manual) 16 H (0-8) % Basophils % (Manual) (0-2) % Metamyelocytes % (Man) (0-1) % Myelocytes % (Man) 2 H (0-0) % Abs Neuts (Manual) 6.5 (1.8-7.7) th/mm3 Differential Comment . Platelet Estimate Normal (Normal) Platelet Morphology Normal (Normal) RBC Morphology Normal (Normal) Sodium 148 H (136-145) meq/L Potassium 3.9 (3.5-5.1) meq/L Chloride 113 H (98-107) meq/L Carbon Dioxide 22.9 (21.0-32.0) meq/L Anion Gap 12 (5-15) meq/L BUN 24 H (7-18) mg/dL Creatinine 1.66 H (0.60-1.30) mg/dL Estimated GFR 49 L (>89) mL/min POC Glucose 260 H (68-110) mg/dl Random Glucose 160 H (74-106) mg/dL Calcium 8.8 (8.5-10.1) mg/dL Prot Corrected Calcium (8.5-10.1) mg/dL Magnesium 2.2 (1.5-2.5) mg/dL Total Bilirubin (0.2-1.0) mg/dL AST (15-37) U/L ALT (12-78) U/L Alkaline Phosphatase (45-117) U/L Total Protein (6.4-8.2) g/dL Albumin (3.4-5.0) g/dL Lipase (73-393) U/L Urine Color (Yellw/Straw) Urine Clarity (Clear) Urine pH (5.0-8.5) Ur Specific [place] (1.002-1.035) Urine Protein (Neg-Trace) mg/dL Urine Glucose (UA) (Negative) mg/dL Urine Ketones (Negative) mg/dL Urine Occult Blood (Negative) Urine Nitrate (Negative) Urine Bilirubin (Negative) Urine Urobilinogen (Less than 2) mg/dL Ur Leukocyte Esterase (Negative) Urine RBC (0-3) /hpf Urine WBC (0-5) /hpf Ur Squamous Epith Cells (0-5) /hpf Urine Bacteria (None) /hpf Urine Mucus (Occasional) /lpf Micro UA Comment Urine Culture Comments 09/04/17 09/04/17 09/04/17 Range/Units 07:35 12:47 16:57 WBC (4.0-11.0) th/mm3 RBC (4.50-5.90) mil/mm3 Hgb (13.0-17.0) gm/dL Hct (39.0-51.0) % MCV (80.0-100.0) fL MCH (27.0-34.0) pg MCHC (32.0-36.0) % RDW (11.6-17.2) % Plt Count (150-450) th/mm3 MPV (7.0-11.0) fL Prelim Diff (Auto) Neut % (Auto) (16.0-70.0) % Lymph % (Auto) (9.0-44.0) % [place] % (Auto) (0.0-8.0) % Eos % (Auto) (0.0-4.0) % Baso % (Auto) (0.0-2.0) % Neut # (Auto) (1.8-7.7) th/mm3 Lymph # (Auto) (1.0-4.8) th/mm3 [place] # (Auto) (0.0-0.9) th/mm3 Eos # (Auto) (0.0-0.4) th/mm3 Baso # (Auto) (0.0-0.2) th/mm3 WBC Differential Diff Scan Seg Neuts % (Manual) (16-70) % Band Neuts % (Manual) (0-6) % Lymphocytes % (Manual) (9-44) % Monocytes % (Manual) (0-8) % Basophils % (Manual) (0-2) % Metamyelocytes % (Man) (0-1) % Myelocytes % (Man) (0-0) % Abs Neuts (Manual) (1.8-7.7) th/mm3 Differential Comment Platelet Estimate (Normal) Platelet Morphology (Normal) RBC Morphology (Normal) Sodium (136-145) meq/L Potassium (3.5-5.1) meq/L Chloride (98-107) meq/L Carbon Dioxide (21.0-32.0) meq/L Anion Gap (5-15) meq/L BUN (7-18) mg/dL Creatinine (0.60-1.30) mg/dL Estimated GFR (>89) mL/min POC Glucose 156 H 223 H 307 H (68-110) mg/dl Random Glucose (74-106) mg/dL Calcium (8.5-10.1) mg/dL Prot Corrected Calcium (8.5-10.1) mg/dL Magnesium (1.5-2.5) mg/dL Total Bilirubin (0.2-1.0) mg/dL AST (15-37) U/L ALT (12-78) U/L Alkaline Phosphatase (45-117) U/L Total Protein (6.4-8.2) g/dL Albumin (3.4-5.0) g/dL Lipase (73-393) U/L Urine Color (Yellw/Straw) Urine Clarity (Clear) Urine pH (5.0-8.5) Ur Specific [place] (1.002-1.035) Urine Protein (Neg-Trace) mg/dL Urine Glucose (UA) (Negative) mg/dL Urine Ketones (Negative) mg/dL Urine Occult Blood (Negative) Urine Nitrate (Negative) Urine Bilirubin (Negative) Urine Urobilinogen (Less than 2) mg/dL Ur Leukocyte Esterase (Negative) Urine RBC (0-3) /hpf Urine WBC (0-5) /hpf Ur Squamous Epith Cells (0-5) /hpf Urine Bacteria (None) /hpf Urine Mucus (Occasional) /lpf Micro UA Comment Urine Culture Comments 09/04/17 09/05/17 09/05/17 Range/Units 19:30 06:10 06:10 WBC 9.6 (4.0-11.0) th/mm3 RBC 4.82 (4.50-5.90) mil/mm3 Hgb 14.3 (13.0-17.0) gm/dL Hct 42.6 (39.0-51.0) % MCV 88.3 (80.0-100.0) fL MCH 29.7 (27.0-34.0) pg MCHC 33.7 (32.0-36.0) % RDW 13.9 (11.6-17.2) % Plt Count 238 (150-450) th/mm3 MPV 9.2 (7.0-11.0) fL Prelim Diff (Auto) Neut % (Auto) 74.8 H (16.0-70.0) % Lymph % (Auto) 14.6 (9.0-44.0) % [place] % (Auto) 9.2 H (0.0-8.0) % Eos % (Auto) 0.9 (0.0-4.0) % Baso % (Auto) 0.5 (0.0-2.0) % Neut # (Auto) 7.2 (1.8-7.7) th/mm3 Lymph # (Auto) 1.4 (1.0-4.8) th/mm3 [place] # (Auto) 0.9 (0.0-0.9) th/mm3 Eos # (Auto) 0.1 (0.0-0.4) th/mm3 Baso # (Auto) 0.1 (0.0-0.2) th/mm3 WBC Differential . Diff Scan Seg Neuts % (Manual) (16-70) % Band Neuts % (Manual) (0-6) % Lymphocytes % (Manual) (9-44) % Monocytes % (Manual) (0-8) % Basophils % (Manual) (0-2) % Metamyelocytes % (Man) (0-1) % Myelocytes % (Man) (0-0) % Abs Neuts (Manual) (1.8-7.7) th/mm3 Differential Comment Auto diff final Platelet Estimate (Normal) Platelet Morphology (Normal) RBC Morphology (Normal) Sodium 146 H (136-145) meq/L Potassium 4.4 (3.5-5.1) meq/L Chloride 113 H (98-107) meq/L Carbon Dioxide 22.2 (21.0-32.0) meq/L Anion Gap 11 (5-15) meq/L BUN 23 H (7-18) mg/dL Creatinine 1.59 H (0.60-1.30) mg/dL Estimated GFR 52 L (>89) mL/min POC Glucose 285 H (68-110) mg/dl Random Glucose 113 H (74-106) mg/dL Calcium 8.9 (8.5-10.1) mg/dL Prot Corrected Calcium (8.5-10.1) mg/dL Magnesium (1.5-2.5) mg/dL Total Bilirubin (0.2-1.0) mg/dL AST (15-37) U/L ALT (12-78) U/L Alkaline Phosphatase (45-117) U/L Total Protein (6.4-8.2) g/dL Albumin (3.4-5.0) g/dL Lipase (73-393) U/L Urine Color (Yellw/Straw) Urine Clarity (Clear) Urine pH (5.0-8.5) Ur Specific [place] (1.002-1.035) Urine Protein (Neg-Trace) mg/dL Urine Glucose (UA) (Negative) mg/dL Urine Ketones (Negative) mg/dL Urine Occult Blood (Negative) Urine Nitrate (Negative) Urine Bilirubin (Negative) Urine Urobilinogen (Less than 2) mg/dL Ur Leukocyte Esterase (Negative) Urine RBC (0-3) /hpf Urine WBC (0-5) /hpf Ur Squamous Epith Cells (0-5) /hpf Urine Bacteria (None) /hpf Urine Mucus (Occasional) /lpf Micro UA Comment Urine Culture Comments 09/05/17 09/05/17 Range/Units 07:59 12:14 WBC (4.0-11.0) th/mm3 RBC (4.50-5.90) mil/mm3 Hgb (13.0-17.0) gm/dL Hct (39.0-51.0) % MCV (80.0-100.0) fL MCH (27.0-34.0) pg MCHC (32.0-36.0) % RDW (11.6-17.2) % Plt Count (150-450) th/mm3 MPV (7.0-11.0) fL Prelim Diff (Auto) Neut % (Auto) (16.0-70.0) % Lymph % (Auto) (9.0-44.0) % [place] % (Auto) (0.0-8.0) % Eos % (Auto) (0.0-4.0) % Baso % (Auto) (0.0-2.0) % Neut # (Auto) (1.8-7.7) th/mm3 Lymph # (Auto) (1.0-4.8) th/mm3 [place] # (Auto) (0.0-0.9) th/mm3 Eos # (Auto) (0.0-0.4) th/mm3 Baso # (Auto) (0.0-0.2) th/mm3 WBC Differential Diff Scan Seg Neuts % (Manual) (16-70) % Band Neuts % (Manual) (0-6) % Lymphocytes % (Manual) (9-44) % Monocytes % (Manual) (0-8) % Basophils % (Manual) (0-2) % Metamyelocytes % (Man) (0-1) % Myelocytes % (Man) (0-0) % Abs Neuts (Manual) (1.8-7.7) th/mm3 Differential Comment Platelet Estimate (Normal) Platelet Morphology (Normal) RBC Morphology (Normal) Sodium (136-145) meq/L Potassium (3.5-5.1) meq/L Chloride (98-107) meq/L Carbon Dioxide (21.0-32.0) meq/L Anion Gap (5-15) meq/L BUN (7-18) mg/dL Creatinine (0.60-1.30) mg/dL Estimated GFR (>89) mL/min POC Glucose 128 H 312 H (68-110) mg/dl Random Glucose (74-106) mg/dL Calcium (8.5-10.1) mg/dL Prot Corrected Calcium (8.5-10.1) mg/dL Magnesium (1.5-2.5) mg/dL Total Bilirubin (0.2-1.0) mg/dL AST (15-37) U/L ALT (12-78) U/L Alkaline Phosphatase (45-117) U/L Total Protein (6.4-8.2) g/dL Albumin (3.4-5.0) g/dL Lipase (73-393) U/L Urine Color (Yellw/Straw) Urine Clarity (Clear) Urine pH (5.0-8.5) Ur Specific [place] (1.002-1.035) Urine Protein (Neg-Trace) mg/dL Urine Glucose (UA) (Negative) mg/dL Urine Ketones (Negative) mg/dL Urine Occult Blood (Negative) Urine Nitrate (Negative) Urine Bilirubin (Negative) Urine Urobilinogen (Less than 2) mg/dL Ur Leukocyte Esterase (Negative) Urine RBC (0-3) /hpf Urine WBC (0-5) /hpf Ur Squamous Epith Cells (0-5) /hpf Urine Bacteria (None) /hpf Urine Mucus (Occasional) /lpf Micro UA Comment Urine Culture Comments Imaging Data Radiologist's impression: Abdomen/Pelvis CT 08/29/17 22:24 CONCLUSION: 1. 7 mm obstructing stone in the proximal left ureter causing mild hydronephrosis and induration of the perinephric fat. Abdomen X-Ray 08/30/17 00:00 CONCLUSION: Multiple dilated loops of small bowel could be ileus. Follow-up recommended. Discharge Plan Discharge Disposition Patient Disposition: 01 Discharge Home Discharge Condition Condition: Stable Discharge Order Discharge Orders: Discharge Order (Routine); Ordered 09/05/17 Ordered By: Ranulfo Yo Discharge Details Anticipated Discharge Date: 09/05/17 Physicians Team ED Provider: Aida Segura ED Midlevel Provider: Damon Katz Primary Care Provider: Steve Cervantes Attending Provider: Sp Pierce Other Providers: Allan Ayers Status ED Status: Left Department Discharge Information Discharge Date/Time: 08/30/17 19:00
[2017-08-29 23:21] LABS: Baso % (Auto) 0.3 % (0.0-2.0); Hematocrit 44.4 % (39.0-51.0); Hemoglobin 14.8 gm/dL (13.0-17.0); Lymph # (Auto) 0.2 th/mm3 (1.0-4.8); Lymph % (Auto) 1.1 % (9.0-44.0); Mean Corpuscular HGB Conc 33.3 % (32.0-36.0); Mean Corpuscular Hemoglobin 29.1 pg (27.0-34.0); Mean Corpuscular Volume 87.2 fL (80.0-100.0); Mean Platelet Volume 8.8 fL (7.0-11.0); Mono # (Auto) 0.2 th/mm3 (0.0-0.9); Mono % (Auto) 1.3 % (0.0-8.0); Neut # (Auto) 16.7 th/mm3 (1.8-7.7); Neut % (Auto) 97.3 % (16.0-70.0); Platelet Count 261 th/mm3 (150-450); Red Blood Count 5.09 mil/mm3 (4.50-5.90); Red Cell Distribution Width 13.4 % (11.6-17.2); White Blood Count 17.2 th/mm3 (4.0-11.0)
[2017-08-29 23:29] LABS: Alanine Aminotransferase 45 U/L (12-78); Albumin 3.8 g/dL (3.4-5.0); Anion Gap 15 meq/L (5-15); Aspartate Aminotransferase 25 U/L (15-37); Blood Urea Nitrogen 24 mg/dL (7-18); Calcium 9.6 mg/dL (8.5-10.1); Carbon Dioxide 17.7 meq/L (21.0-32.0); Chloride 112 meq/L (98-107); Glomerular Filtration Rate 33 mL/min (>89); Glucose,Random 201 mg/dL (74-106); Lipase 244 U/L (73-393); Potassium 3.8 meq/L (3.5-5.1); Sodium 145 meq/L (136-145)
[2017-08-29 23:31] LABS: Alkaline Phosphatase 112 U/L (45-117); Total Protein 8.1 g/dL (6.4-8.2)
[2017-08-29 23:38] LABS: Bacteria,Urine Rare /hpf; Bilirubin,Urine Negative (Negative); Clarity,Urine Hazy (Clear); Color,Urine Yellow (Yellw/Straw); Glucose,Urine (UA) 500 or Greater mg/dL (Negative); Leukocyte Esterase,Urine Trace (Negative); Mucus,Urine Few /lpf (Occasional); Nitrite,Urine Negative (Negative); Specific Gravity,Urine 1.015 (1.002-1.035); Squamous Epithelial Cell,Urine 1 /hpf (0-5)
--- NOTE | 2017-08-29 23:44 | CT ---
EXAM DATE: 08/29/2017 11:19 PM EDT AGE/SEX: 72 years / Male INDICATIONS: Left flank pain. CLINICAL DATA: This is the patient's initial encounter. Patient reports that signs and symptoms have been present for 1 day and indicates a pain score of 5/10. MEDICAL/SURGICAL HISTORY: Renal disease. Hypertension. None. RADIATION DOSE: 13.21 CTDI (mGy) COMPARISON: No prior exams available for comparison. TECHNIQUE: Renal colic protocol. Multiple contiguous axial images were obtained through the abdomen. Images were obtained using multiple row detector helical technique. Using automated exposure control and adjustment of the mA and/or kV according to patient size, radiation dose was kept as low as reas onably achievable to obtain optimal diagnostic quality images. DICOM format image data is available electronically for review and comparison. FINDINGS: Right kidney/ureter: No calcified stones. No dilation of the collecting system or ureter. Left kidney/ureter: Mild dilation of the collecting system of the left kidney and dilation of the pro ximal left ureter down to a 7 mm obstructing stone. There is induration of the perinephric fat. No ad ditional calcified stones seen in the collecting system of the left kidney. Bladder: Smooth margins. No calcifications within the lumen. Other: No calcified gallstones. Normal dimension abdominal aorta. No dilated loops of small or large bowel. CONCLUSION: 1. 7 mm obstructing stone in the proximal left ureter causing mild hydronephrosis and induration of the perinephric fat. Electronically signed by: Aravind Javed MD 08/29/2017 11:42 PM EDT
[2017-08-29 23:52] LABS: Lymphocytes 1 % (9-44); Monocytes 4 % (0-8)
[2017-08-29 23:53] LABS: Platelet Estimate Normal (Normal); Platelet Morphology Normal (Normal); RBC Morphology Normal (Normal)
[2017-08-30] MEDS ORDERED: Morphine Inj 4 MG/ML Vial IV.PUSH PRN (00:30)
[2017-08-30] MEDS ORDERED: Acetaminophen 325 MG Tablet PO PRN (07:56)
[2017-08-30] MEDS ORDERED: Sod Chloride 0.9% Inj 1,000 ML IV.CONT SCH (08:00)
[2017-08-30] MEDS ORDERED: Dextrose 50% in Water 50 ML Vial IV.PUSH PRN (08:35)
--- NOTE | 2017-08-30 08:40 | P.HPIM ---
History of Present Illness Primary Care Physician: Steve Cervantes MD Chief Complaint: Flank pain, chills, nausea History of Present Illness: Mr. Brown is a 72 y/o AAM with Type 2 DM, hypertension, hyperlipidemia, chronic kidney disease stage III, and history of kidney stones in the past. Patient presented to the ED at [facility] [place] on 08/29/17 with complaints of sudden onset of left flank pain which started earlier that morning. He describes the pain as constant, sharp and stabbing and is nonradiating. He has had associated nausea and vomiting. He denies any abdominal/pelvic pain, testicular pain, or hematuria. He does have some chronic urinary frequency but has had no dysuria. Labs in the ED revealed elevated WBC count of 17 with a left shift, worsening baseline CKD with Cr 2.36/BUN 24, GFR 33. CT Abd/pelvis in the ED revealed a 7 mm obstructing stone in the proximal left ureter causing mild hydronephrosis and induration of the perinephric fat. Pt reports feeling feverish at home and today has had some shaking chills. He is still feeling nauseated this morning. Denies any diarrhea, constipation, chest pain, SOB, or palpitations. Past Medical Hx Essential HTN TITO on CPAP CKD, stage 3 Hx of nephrolithiasis Type 2 diabetes mellitus Diabetic nephropathy/polyneuropathy Hyperlipidemia Gout Obesity GERD/hiatal hernia Vitamin D deficiency Past Surgical Hx EGD/colonoscopy Family Hx Noncontributory Social Hx Denies any alcohol, tobacco or illicit drug use Pt is and lives locally He works at [employer] - Diagnosis (1) Left nephrolithiasis (2) Hydronephrosis concurrent with and due to calculi of kidney and ureter (3) Leukocytosis (4) Acute worsening of stage 3 chronic kidney disease (5) Diabetes (6) HTN (hypertension) (7) Hyperlipidemia Inpatient Certification: I certify that the inpatient services were ordered in accordance with Medicare regulations governing the order. This includes certification that hospital inpatient services are reasonable and necessary and in the case of services not specified as inpatient-only under 42 CFR 419.22(n), that they are appropriately provided as inpatient services in accordance to with the 2-midnight benchmark under 43 CFR 412.3(e) Estimated Total Length of Stay (Days): 3 Plans for Post Hospital Care: Not yet determined Review of Systems All other systems reviewed negative except as stated in HPI Constitutional: Reports chills, Reports fever(s) Eyes: Denies double vision, Denies loss of vision Ears, Nose, Mouth, and Throat: Denies headache(s), Denies hearing loss, Denies post nasal drip, Denies sinus pressure Cardiovascular: Denies chest pain, Denies generalized swelling, Denies irregular heart rhythm, Denies lightheadedness Respiratory: Denies chest congestion, Denies cough Gastrointestinal: Reports nausea, Reports vomiting, Denies abdominal pain, Denies constipation, Denies loose stools Genitourinary: Reports side pain, Reports urinary frequency, Denies testicle pain, Denies urinary hesitancy, Denies urinary incontinence, Denies urinary urgency Musculoskeletal: Denies neck pain Skin/Breast: Denies rash PMFSH - History History Provided By: Patient - Medical History Medical History: Medical History (Last Reviewed 09/01/17 @ 08:33 by Yi Arango) Hyperlipemia Hypertension Chronic renal failure, stage 3 (moderate) Diabetes mellitus - Tobacco History Smoking Status: Never smoker - Alcohol History How Often Do You Have a Drink Containing Alcohol: Never - Substance Use History Substance History: No History of Abuse - Travel History Recent Travel in the [place] Within the Last 8 Weeks: No Recent Travel Out of the Country Within the Last 8 Weeks: No - Immunization History Tetanus Immunization: <5 Years Hx Influenza Vaccine This Season: Yes Medications and Allergies Allergies Allergy/AdvReac Type Severity Reaction Status Date / Time No Known Allergies Allergy Unverified 08/29/17 17:22 Home Medications Medication Instructions Recorded Confirmed Type albiglutide [Tanzeum] 50 mg SUB-Q Q7D 08/29/17 08/29/17 History amlodipine 10 mg PO DAILY 08/29/17 08/29/17 History atenolol 100 mg PO DAILY 08/29/17 08/29/17 History empagliflozin [Jardiance] 25 mg PO DAILY 08/29/17 08/29/17 History lisinopril 40 mg PO DAILY 08/29/17 08/29/17 History pravastatin 10 mg PO HS 08/29/17 08/30/17 History clonidine HCl 0.2 mg PO BID 08/30/17 08/30/17 History glimepiride 4 mg PO BID 08/30/17 08/30/17 History Active Medications: Active Medications Acetaminophen (Tylenol) 650 mg PO Q4H PRN PRN Reason: Temp > 100.4 Al Hydroxide/Mg Hydroxide (Milk Of Leola Brown) 30 ml PO Q12H PRN PRN Reason: Mild Constipation Sodium Chloride (Ns Inj) 1,000 mls @ 100 mls/hr IV.CONT .Q10H SERVANDO Morphine Sulfate (Morphine Inj) 2 mg IV.PUSH Q4H PRN PRN Reason: PAIN 6-10 Last Admin: 08/30/17 04:36 Dose: 2 mg Ondansetron HCl (Zofran Odt) 4 mg PO Q6H PRN PRN Reason: NAUSEA OR VOMITING Senna/Docusate Sodium (Milana-Colace) 1 tab PO BID SERVANDO Sodium Chloride (Ns Flush) 2 ml IV.FLUSH PRN PRN PRN Reason: FLUSH AFTER USING IV ACCESS Exam Vital signs: Vital Signs 08/29/17 17:15 08/29/17 23:32 08/30/17 04:15 Temperature 99.1 F 98 F Pulse Rate 87 103 H Respiratory Rate 16 4 L 18 Blood Pressure 159/79 H 117/66 Pulse Oximetry 99 08/30/17 08:00 Temperature 98.0 F Pulse Rate 94 H Respiratory Rate 18 Blood Pressure 128/70 Pulse Oximetry 96 Intake & Output 08/29/17 08/30/17 08/30/17 18:59 06:59 18:59 Weight 104.326 kg 104.326 kg Narrative: GENERAL: NAD, AAOx3 SKIN: Warm and dry. HEENT: Atraumatic. Normocephalic. Pupils equal and round. No scleral icterus. No injection or drainage. No nasal bleeding or discharge. Mucous membranes pink and moist. NECK: Trachea midline. No JVD. CARDIOVASCULAR: Regular rate and rhythm. RESPIRATORY: No accessory muscle use. Clear to auscultation. Breath sounds equal bilaterally. GASTROINTESTINAL: +BS, soft, non-tender, nondistended. Hepatic and splenic margins not palpable. MUSCULOSKELETAL: Extremities without clubbing, cyanosis, or edema. No obvious deformities. NEUROLOGICAL: Awake and alert. No obvious cranial nerve deficits. Motor grossly within normal limits. Five out of 5 muscle strength in the arms and legs. Normal speech. PSYCHIATRIC: Appropriate mood and affect; insight and judgment normal. Results - Labs CBC & Chem 7: 09/04/17 06:02 09/04/17 06:02 Labs: Short CBC 08/29/17 Range/Units 22:41 WBC 17.2 H (4.0-11.0) th/mm3 Hgb 14.8 (13.0-17.0) gm/dL Hct 44.4 (39.0-51.0) % Plt Count 261 (150-450) th/mm3 BMP 08/29/17 22:41 Sodium 145 Potassium 3.8 Chloride 112 H Carbon Dioxide 17.7 L BUN 24 H Creatinine 2.36 H Calcium 9.6 Liver Function 08/29/17 Range/Units 22:41 Total Bilirubin 0.8 (0.2-1.0) mg/dL AST 25 (15-37) U/L ALT 45 (12-78) U/L Alkaline Phosphatase 112 (45-117) U/L Albumin 3.8 (3.4-5.0) g/dL Urine 08/29/17 Range/Units 23:00 Urine Color Yellow (Yellw/Straw) Urine Clarity Hazy H (Clear) Urine pH 5.0 (5.0-8.5) Ur Specific [place] 1.015 (1.002-1.035) Urine Protein Negative (Neg-Trace) mg/dL Urine Glucose (UA) 500 or greater (Negative) mg/dL - Imaging Impressions Abdomen/Pelvis CT 08/29/17 22:24 CONCLUSION: 1. 7 mm obstructing stone in the proximal left ureter causing mild hydronephrosis and induration of the perinephric fat. Caprini VTE Risk Assessment Caprini VTE Risk Assessment: No/Low Risk (score <= 1) Caprini Risk Assessment Model: Point Value = 1 Point Value = 2 Point Value = 3 Point Value = 5 Age 41-60 Minor surgery BMI > 25 kg/m2 Swollen legs Varicose veins or History of unexplained or recurrent spontaneous Oral contraceptives or hormone replacement Sepsis (< 1 month) Serious lung disease, including pneumonia (< 1 month) Abnormal pulmonary function Acute myocardial infarction Congestive heart failure (< 1 month) History of inflammatory bowel disease Medical patient at bed rest Age 61-74 Arthroscopic surgery Major open surgery (> 45 min) Laparoscopic surgery (> 45 min) Malignancy Confined to bed (> 72 hours) Immobilizing plaster cast Central venous access Age >= 75 History of VTE Family history of VTE Factor V Leiden Prothrombin [id number] Lupus anticoagulant Anticardiolipin antibodies Elevated serum homocysteine Heparin-induced thrombocytopenia Other congenital or acquired thrombophilia Stroke (< 1 month) Elective arthroplasty Hip, pelvis, or leg fracture Acute spinal cord injury (< 1 month) Prophylaxis Regimen: Total Risk Factor Score Risk Level Prophylaxis Regimen 0-1 Low Early ambulation 2 Moderate Order ONE of the following: *Sequential Compression Device (SCD) *Heparin 5000 units SQ BID 3-4 Higher Order ONE of the following medications: *Heparin 5000 units SQ TID *Enoxaparin/Lovenox 40 mg SQ daily (WT < 150 kg, CrCl > 30 mL/min) *Enoxaparin/Lovenox 30 mg SQ daily (WT < 150 kg, CrCl > 10-29 mL/min) *Enoxaparin/Lovenox 30 mg SQ BID (WT < 150 kg, CrCl > 30 mL/min) AND/OR *Sequential Compression Device (SCD) 5 or more Highest Order ONE of the following medications: *Heparin 5000 units SQ TID (Preferred with Epidurals) *Enoxaparin/Lovenox 40 mg SQ daily (WT < 150 kg, CrCl > 30 mL/min) *Enoxaparin/Lovenox 30 mg SQ daily (WT < 150 kg, CrCl > 10-29 mL/min) *Enoxaparin/Lovenox 30 mg SQ BID (WT < 150 kg, CrCl > 30 mL/min) AND *Sequential Compression Device (SCD) Assessment and Plan - Assessment (1) Left nephrolithiasis Code(s): N20.0 - Calculus of kidney Status: Acute Plan: Nephrolithiasis Hydronephrosis Leukocytosis with left shift Shaking chills - Pt is a 72 y/o AAM with Type 2 DM, hypertension, hyperlipidemia, chronic kidney disease stage III, and history of kidney stones in the past. - Patient presented to the ED at [facility] on 08/29/17 with complaints of sudden onset of left flank pain, nausea/vomiting, subjective fevers and shaking chills which began yesterday morning. - Labs in the ED revealed elevated WBC count of 17 with a left shift, worsening baseline CKD with Cr 2.36/BUN 24, GFR 33. - CT Abd/pelvis in the ED revealed a 7 mm obstructing stone in the proximal left ureter causing mild hydronephrosis and induration of the perinephric fat. - Drawn blood cultures x 2 this morning - Start Zosyn after blood cultures are drawn - Urology is consulted - IVF - Recheck labs this morning and in AM - Pt is currently NPO - Antiemetics PRN - Antipyretics PRN - Supportive care - DVT prophylaxis with SCDs HTN - Pt is normally on Amlodipine 10 mg PO DAILY, Atenolol 100 mg PO DAILY, Lisinopril 40 mg PO DAILY, and Clonidine HCl 0.2 mg PO BID - Hold Atenolol, Lisinopril and Clonidine at this time, BP is low normal and with BRIAN - Cont. Norvasc as BP allows - Clonidine PRN Diabetes mellitus - Hold home meds for now - NovoLog SSI - Accu checks Hyperlipidemia - Cont. home meds (2) Hydronephrosis concurrent with and due to calculi of kidney and ureter Code(s): N13.2 - Hydronephrosis with renal and ureteral calculous obstruction Status: Acute (3) Leukocytosis Code(s): D72.829 - Elevated white blood cell count, unspecified Status: Acute (4) Acute worsening of stage 3 chronic kidney disease Code(s): N18.3 - Chronic kidney disease, stage 3 (moderate) Status: Acute (5) Diabetes Code(s): E11.9 - Type 2 diabetes mellitus without complications Status: Acute (6) HTN (hypertension) Code(s): I10 - Essential (primary) hypertension Status: Acute (7) Hyperlipidemia Code(s): E78.5 - Hyperlipidemia, unspecified Status: Acute - Plan Patient examined. Assessment and plan formulated with Aida RAMIREZ I agree with the above.
[2017-08-30] MEDS ORDERED: Piperacil/Tazo 3.375 GM Premix 50 ML IV.SIG SCH (10:00)
[2017-08-30 10:17] LABS: Hematocrit 44.1 % (39.0-51.0); Hemoglobin 15.1 gm/dL (13.0-17.0); Mean Corpuscular HGB Conc 34.3 % (32.0-36.0); Mean Corpuscular Hemoglobin 30.6 pg (27.0-34.0); Mean Corpuscular Volume 89.4 fL (80.0-100.0); Mean Platelet Volume 8.8 fL (7.0-11.0); Platelet Count 268 th/mm3 (150-450); Red Blood Count 4.93 mil/mm3 (4.50-5.90); White Blood Count 25.6 th/mm3 (4.0-11.0)
[2017-08-30 10:36] LABS: Calcium 7.4 mg/dL (8.5-10.1); Carbon Dioxide 18.9 meq/L (21.0-32.0); Potassium 3.7 meq/L (3.5-5.1)
[2017-08-30] MEDS: Senna/Docusate Sodium 8.6/50 MG Tablet PO SCH (10:39)
[2017-08-30] MEDS: amLODIPine 10 MG Tablet PO SCH (10:54)
[2017-08-30 11:03] LABS: Total Protein 6.6 g/dL (6.4-8.2)
[2017-08-30 11:30] LABS: Lymphocytes 2 % (9-44)
[2017-08-30 11:31] LABS: Platelet Estimate Normal (Normal); Platelet Morphology Normal (Normal); RBC Morphology Normal (Normal)
--- NOTE | 2017-08-30 12:12 | P.CONURO ---
History of Present Illness Service: Urology Consult date: 08/30/17 Reason for Consult: Damon PORTER Primary Care Provider: Steve Cervantes MD Chief Complaint: Flank pain, chills, nausea History of Present Illness: Mr. Brown is a 72 y/o AAM with Type 2 DM, hypertension, hyperlipidemia, chronic kidney disease stage III, and history of kidney stones in the past. [place] [facility] [place] with complaints of sudden onset of left flank pain which started earlier that morning. He describes the pain as constant, sharp and stabbing and is nonradiating. He has had associated nausea and vomiting. He denies any abdominal/pelvic pain, testicular pain, or hematuria. He does have some chronic urinary frequency but has had no dysuria. Labs in the ED revealed elevated WBC count of 17 with a left shift, worsening baseline CKD with Cr 2.36/BUN 24, GFR 33. CT Abd/pelvis in the ED revealed a 7 mm obstructing stone in the proximal left ureter causing mild hydronephrosis and induration of the perinephric fat. Urology was consulted.. He is afebrile today. White count is increasing and its 25 today. Cr is 2.25. Bc and UC are pending Review of Systems All other systems reviewed negative except as stated in HPI PMFSH - History History Provided By: Patient - Medical History Medical History: Medical History (Last Updated 08/29/17 @ 22:32 by CHARLOTTE Roger) Hyperlipemia Hypertension Chronic renal failure, stage 3 (moderate) Diabetes mellitus - Tobacco History Smoking Status: Never smoker - Alcohol History How Often Do You Have a Drink Containing Alcohol: Never - Substance Use History Substance History: No History of Abuse - Travel History Recent Travel in the [place] Within the Last 8 Weeks: No Recent Travel Out of the Country Within the Last 8 Weeks: No - Immunization History Tetanus Immunization: <5 Years Hx Influenza Vaccine This Season: Yes Medications and Allergies Active Medications: Active Medications Acetaminophen (Tylenol) 650 mg PO Q4H PRN PRN Reason: Temp > 100.4 Hydrocodone Bitart/Acetaminophen ([place] 5/325) 1 tab PO Q4H PRN PRN Reason: pain 2-5 Al Hydroxide/Mg Hydroxide (Milk Of Magnesia Liq) 30 ml PO Q12H PRN PRN Reason: Mild Constipation Amlodipine Besylate (Norvasc) 10 mg PO DAILY [facility] Last Admin: 08/30/17 10:54 Dose: 10 mg Clonidine HCl (Catapres) 0.1 mg PO Q6H PRN PRN Reason: systolic BP over 160 Dextrose (D50w Vial) 50 ml IV.PUSH UNSCH PRN PRN Reason: PER HYPOGLYCEMIA PROTOCOL Glucagon (Glucagon Inj) 1 mg OTHER PRN PRN PRN Reason: for Hypoglycemia Protocol Piperacillin/Tazobactam/Dextrose (Zosyn 3.375 Gm Premix) 50 mls @ 100 mls/hr IV.SIG Q6H [facility] Last Admin: 08/30/17 10:54 Dose: 100 mls/hr Potassium Chloride 10 meq/ (Sodium Chloride) 1,005 mls @ 100 mls/hr IV.CONT .Q10H3M [facility] Insulin Aspart (Novolog Insulin Correctional Sugar Inj) 0 unit SQ ACHS [facility]; Protocol Morphine Sulfate (Morphine Inj) 2 mg IV.PUSH Q4H PRN PRN Reason: PAIN 6-10 Last Admin: 08/30/17 04:36 Dose: 2 mg Ondansetron HCl (Zofran Odt) 4 mg PO Q6H PRN PRN Reason: NAUSEA OR VOMITING Last Admin: 08/30/17 09:29 Dose: 4 mg Pravastatin Sodium (Pravachol) 10 mg PO [facility] Senna/Docusate Sodium (Milana-Colace) 1 tab PO BID [facility] Last Admin: 08/30/17 10:39 Dose: Not Given Sodium Chloride (Ns Flush) 2 ml IV.FLUSH PRN PRN PRN Reason: FLUSH AFTER USING IV ACCESS Allergies Allergy/AdvReac Type Severity Reaction Status Date / Time No Known Allergies Allergy Unverified 08/29/17 17:22 Home Medications Medication Instructions Recorded Confirmed Type albiglutide [Tanzeum] 50 mg SUB-Q Q7D 08/29/17 08/29/17 History amlodipine 10 mg PO DAILY 08/29/17 08/29/17 History atenolol 100 mg PO DAILY 08/29/17 08/29/17 History empagliflozin [Jardiance] 25 mg PO DAILY 08/29/17 08/29/17 History lisinopril 40 mg PO DAILY 08/29/17 08/29/17 History pravastatin 10 mg PO HS 08/29/17 08/30/17 History clonidine HCl 0.2 mg PO BID 08/30/17 08/30/17 History glimepiride 4 mg PO BID 08/30/17 08/30/17 History Physical Exam Vital Signs - 24 hr 08/29/17 17:15 08/29/17 23:32 08/30/17 04:15 Temperature 99.1 F 98 F Pulse Rate 87 103 H Respiratory Rate 16 4 L 18 Blood Pressure 159/79 H 117/66 Pulse Oximetry 99 08/30/17 08:00 Temperature 98 F Pulse Rate 94 H Respiratory Rate 18 Blood Pressure 128/70 Pulse Oximetry 96 Physical Exam: GENERAL: This is a well-nourished, well-developed patient, in no apparent distress. HEAD: Atraumatic. Normocephalic. CARDIOVASCULAR: Regular rate and rhythm without murmurs, gallops, or rubs. RESPIRATORY: Clear to auscultation. Breath sounds equal bilaterally. No wheezes , rales, or rhonchi. GASTROINTESTINAL: Abdomen soft, non-tender, nondistended. GENITOURINARY: No CVAT, bladder not distended MUSCULOSKELETAL: Extremities without clubbing, cyanosis, or edema. N NEUROLOGICAL: Awake and alert. Laboratory Results - last 24 hr 08/29/17 08/29/17 08/29/17 22:41 22:41 23:00 WBC 17.2 H RBC 5.09 Hgb 14.8 Hct 44.4 MCV 87.2 MCH 29.1 MCHC 33.3 RDW 13.4 Plt Count 261 MPV 8.8 Prelim Diff (Auto) Slide review pending Neut % (Auto) 97.3 H Lymph % (Auto) 1.1 L Terry % (Auto) 1.3 Eos % (Auto) 0.0 Baso % (Auto) 0.3 Neut # (Auto) 16.7 H Lymph # (Auto) 0.2 L Terry # (Auto) 0.2 Eos # (Auto) 0.0 Baso # (Auto) 0.0 WBC Differential Manual diff final Seg Neuts % (Manual) 85 H Band Neuts % (Manual) 10 H Lymphocytes % (Manual) 1 L Monocytes % (Manual) 4 Abs Neuts (Manual) 16.3 H Differential Comment . Platelet Estimate Normal Platelet Morphology Normal RBC Morphology Normal Sodium 145 Potassium 3.8 Chloride 112 H Carbon Dioxide 17.7 L Anion Gap 15 BUN 24 H Creatinine 2.36 H Estimated GFR 33 L Random Glucose 201 H Calcium 9.6 Prot Corrected Calcium Total Bilirubin 0.8 AST 25 ALT 45 Alkaline Phosphatase 112 Total Protein 8.1 Albumin 3.8 Lipase 244 Urine Color Yellow Urine Clarity Hazy H Urine pH 5.0 Ur Specific [place] 1.015 Urine Protein Negative Urine Glucose (UA) 500 or greater Urine Ketones Trace Urine Occult Blood Large H Urine Nitrate Negative Urine Bilirubin Negative Urine Urobilinogen Less than 2 Ur Leukocyte Esterase Trace H Urine RBC 44 H Urine WBC 23 H Ur Squamous Epith Cells 1 Urine Bacteria Rare H Urine Mucus Few H Micro UA Comment Culture indicated Urine Culture Comments Culture indicated 08/30/17 08/30/17 09:40 09:40 WBC 25.6 H RBC 4.93 Hgb 15.1 Hct 44.1 MCV 89.4 MCH 30.6 MCHC 34.3 RDW 14.0 Plt Count 268 MPV 8.8 Prelim Diff (Auto) Manual diff required Neut % (Auto) Lymph % (Auto) Terry % (Auto) Eos % (Auto) Baso % (Auto) Neut # (Auto) Lymph # (Auto) Terry # (Auto) Eos # (Auto) Baso # (Auto) WBC Differential Manual diff final Seg Neuts % (Manual) 62 Band Neuts % (Manual) 36 H Lymphocytes % (Manual) 2 L Monocytes % (Manual) Abs Neuts (Manual) 25.1 H Differential Comment . Platelet Estimate Normal Platelet Morphology Normal RBC Morphology Normal Sodium 151 H Potassium 3.7 Chloride 119 H Carbon Dioxide 18.9 L Anion Gap 13 BUN 23 H Creatinine 2.25 H Estimated GFR 35 L Random Glucose 184 H Calcium 7.4 L* D Prot Corrected Calcium 7.7 L Total Bilirubin AST ALT Alkaline Phosphatase Total Protein 6.6 D Albumin Lipase Urine Color Urine Clarity Urine pH Ur Specific [place] Urine Protein Urine Glucose (UA) Urine Ketones Urine Occult Blood Urine Nitrate Urine Bilirubin Urine Urobilinogen Ur Leukocyte Esterase Urine RBC Urine WBC Ur Squamous Epith Cells Urine Bacteria Urine Mucus Micro UA Comment Urine Culture Comments Result Diagrams: 08/30/17 09:40 08/30/17 09:40 Imaging: ITS Impressions Abdomen/Pelvis CT 08/29/17 22:24 CONCLUSION: 1. 7 mm obstructing stone in the proximal left ureter causing mild hydronephrosis and induration of the perinephric fat. Assessment and Plan - Plan 72y.o m with 7-8mm left proximal ureteral stone and hydro. With elevated WBCs and Cr. Afebrile - Continue care as per primary team - IV fluids and antibiotics. Flomax started - NPO post midnight - OR at AM for Cysto left ureteral stent placement with Dr Ayers - RN to sign consent with pt Further recommendations after procedure Discussed Condition With: Discussed with Dr Ayers attending who agrees with this plan
--- NOTE | 2017-08-30 12:54 | XR ---
EXAM DATE: 08/30/2017 12:46 PM EDT AGE/SEX: 72 years / Male INDICATIONS: Constipation, abdominal pain, nausea, vomiting. CLINICAL DATA: This is the patient's initial encounter. Patient reports that signs and symptoms have been present for 2 days and indicates a pain score of 10/10. MEDICAL/SURGICAL HISTORY: Hypertension. Diabetes mellitus type II. Left side kidney stone. No ne. COMPARISON: [facility] [place], [place] ABDOMEN & PELVIS W/O CONTRAST, 08/29/2017. . FINDINGS: Gaseous distention of multiple bowel loops throughout the abdomen. There is air in portions of the c olon. No abnormal masses, calcifications, or organomegaly is seen. The osseous structures are unrem arkable. CONCLUSION: Multiple dilated loops of small bowel could be ileus. Follow-up recommended. Electronically signed by: Wilder Penny MD 08/30/2017 12:52 PM EDT
[2017-08-30] MEDS: Potassium Chloride Inj 10 MEQ in Sodium Chloride 0.45 % Inj 1,000 ML IV.CONT SCH (14:18)
[2017-08-30] MEDS: Insulin NovoLOG Aspart Correctional Sugar Inj SQ SCH ×3 (14:18→22:00)
[2017-08-30] MEDS: Piperacil/Tazo 2.25 GM Premix 50 ML IV.SIG SCH (17:25)
--- NOTE | 2017-08-30 20:49 | ECG ---
Date Performed: 08/29/2017 Time Performed: 22:35:42 PTAGE: 72 years EKG: SINUS TACHYCARDIA POSSIBLE LEFT ATRIAL ENLARGEMENT PROBABLE INFERIOR MYOCARDIAL INFARCTION ABNORMAL ECG PREVIOUS TRACING : 05/03/2011 11.20 When compared with prior HR has increased DOCTOR: Mauricio Zimmer Interpretating Date/Time 08/30/2017 20:47:22
[2017-08-31] MEDS: Piperacil/Tazo 2.25 GM Premix 50 ML IV.SIG SCH ×4 (02:12→18:00)
[2017-08-31] MEDS: Senna/Docusate Sodium 8.6/50 MG Tablet PO SCH ×3 (02:12→21:11)
[2017-08-31] MEDS: Potassium Chloride Inj 10 MEQ in Sodium Chloride 0.45 % Inj 1,000 ML IV.CONT SCH ×3 (02:13→19:56)
[2017-08-31] MEDS ORDERED: Chlorhexidine Gluconate 2% 1 Pack (2 Cloths) TOPICAL SCH (02:45)
[2017-08-31] MEDS ORDERED: Sodium Chlor 0.9% Inj 500 ML IV.SIG SCH (03:00)
[2017-08-31 07:03] LABS: Baso % (Auto) 0.1 % (0.0-2.0); Hematocrit 41.4 % (39.0-51.0); Hemoglobin 13.6 gm/dL (13.0-17.0); Lymph % (Auto) 2.8 % (9.0-44.0); Mean Corpuscular HGB Conc 32.8 % (32.0-36.0); Mean Corpuscular Hemoglobin 29.2 pg (27.0-34.0); Mean Corpuscular Volume 89.1 fL (80.0-100.0); Mean Platelet Volume 9.1 fL (7.0-11.0); Mono # (Auto) 1.1 th/mm3 (0.0-0.9); Mono % (Auto) 3.1 % (0.0-8.0); Neut # (Auto) 33.7 th/mm3 (1.8-7.7); Platelet Count 209 th/mm3 (150-450); Red Blood Count 4.65 mil/mm3 (4.50-5.90); Red Cell Distribution Width 13.8 % (11.6-17.2); White Blood Count 35.8 th/mm3 (4.0-11.0)
[2017-08-31 07:35] LABS: Calcium 8.7 mg/dL (8.5-10.1); Carbon Dioxide 22.9 meq/L (21.0-32.0)
--- NOTE | 2017-08-31 08:17 | P.PNURO ---
Subjective Patient symptoms today: Successful left ureteral stent placement, 6x26 JJ. Cloudy urine noted once stent was placed. -Expect WBC and Cr to improve -Patient clear for discharge once medically stable from Urology standpoint with followup in clinic for definitive stone management -Please call with questions Objective Vital Signs: Vital Signs 08/30/17 12:00 08/30/17 16:00 08/30/17 20:00 Temperature 100.6 F H 98.3 F 98.6 F Pulse Rate 118 H 111 H 108 H Respiratory Rate 20 20 19 Blood Pressure 141/66 H 104/64 124/70 Pulse Oximetry 94 L 95 08/31/17 00:00 08/31/17 04:00 Temperature 98.1 F 97.8 F Pulse Rate 105 H 107 H Respiratory Rate 17 18 Blood Pressure 98/54 L 98/58 L Pulse Oximetry 94 L 94 L Intake & Output 08/30/17 08/31/17 08/31/17 18:59 06:59 18:59 Intake Total 50 / 50 1295 / 1295 Output Total 500 / 500 450 / 450 Balance -450 / -450 845 / 845 Weight 100.9 kg Intake: IV 50 / 50 1055 / 1055 KCl Inj 10 MEQ In 1/2 Normal 1005 / 1005 Saline Inj 1,000 ML @ 100 mls/ hr IV.CONT .Q10H3M [facility] Rx#: [id number] Zosyn 2.25 GM Premix 50 ML @ 50 / 50 100 mls/hr IV.SIG Q6H [facility] Rx#: [id number] Zosyn 3.375 GM Premix 50 ML @ 50 / 50 100 mls/hr IV.SIG Q6H [facility] Rx#: [id number] Oral 240 / 240 Output: Urine 500 / 500 450 / 450 Other: # Voids 5 Weight On Admission 100.6 kg Result Diagrams: 08/31/17 05:21 08/31/17 05:21 Imaging: Impressions Abdomen X-Ray 08/30/17 00:00 CONCLUSION: Multiple dilated loops of small bowel could be ileus. Follow-up recommended. Medications and IVs: Active Medications Generic Name Dose Route Start Last Admin Trade Name Freq PRN Reason Stop Dose Admin Acetaminophen 650 mg 08/30/17 07:56 Tylenol PO Q4H PRN Temp > 100.4 Hydrocodone Bitart/Acetaminophen 1 tab 08/30/17 09:12 [place] 5/325 PO Q4H PRN pain 2-5 Al Hydroxide/Mg Hydroxide 30 ml 08/30/17 07:56 08/30/17 17:25 Milk Of Magnesia Liq PO 30 ml Q12H PRN Administration Mild Constipation Amlodipine Besylate 10 mg 08/30/17 10:00 08/30/17 10:54 Norvasc PO 10 mg DAILY [facility] Administration Chlorhexidine Gluconate 3 pack 08/31/17 02:45 Chlorhexidine 2% Cloth TOPICAL 09/03/17 02:32 [facility] Clonidine HCl 0.1 mg 08/30/17 09:38 Catapres PO Q6H PRN systolic BP over 160 Dextrose 50 ml 08/30/17 08:35 D50w Vial IV.PUSH UNSCH PRN PER HYPOGLYCEMIA PROTOCOL Glucagon 1 mg 08/30/17 08:35 Glucagon Inj OTHER PRN PRN for Hypoglycemia Protocol Potassium Chloride 10 meq/ 1,005 mls @ 100 mls/hr 08/30/17 12:00 08/31/17 02: 13 Sodium Chloride IV.CONT Not Given .Q10H3M [facility] Piperacillin/Tazobactam/Dextrose 50 mls @ 100 mls/hr 08/30/17 17:00 08/31/17 02:12 Zosyn 2.25 Gm Premix IV.SIG 100 mls/hr Q6H [facility] Administration Lactated Ringer's 1,000 mls @ 30 mls/hr 08/31/17 02:45 Lr 1000 Ml Inj IV.SIG 09/03/17 02:32 .Q24H SERV[facility]O Sodium Chloride 500 mls @ 30 mls/hr 08/31/17 03:00 Ns Inj IV.SIG 09/03/17 02:32 .Q10H [facility] Insulin Aspart 0 unit 08/30/17 12:00 08/30/17 22:00 Novolog Insulin Correctional Sugar Inj SQ Not Given ACHS [facility] Protocol Morphine Sulfate 2 mg 08/30/17 00:30 08/30/17 04:36 Morphine Inj IV.PUSH 2 mg Q4H PRN Administration PAIN 6-10 Ondansetron HCl 4 mg 08/30/17 00:27 08/31/17 03:49 Zofran Odt PO 4 mg Q6H PRN Administration NAUSEA OR VOMITING Povidone Iodine 1 applicatio 08/31/17 02:45 Betadine 5% Antisepsis Kit EACH NARE 09/03/17 02:32 [facility] Pravastatin Sodium 10 mg 08/30/17 21:00 08/31/17 02:12 Pravachol PO 10 mg HS [facility] Administration Senna/Docusate Sodium 1 tab 08/30/17 09:00 08/31/17 02:12 Milana-Colace PO Not Given BID [facility] Sodium Chloride 2 ml 08/29/17 22:24 Ns Flush IV.FLUSH PRN PRN FLUSH AFTER USING IV ACCESS Tamsulosin HCl 0.4 mg 08/30/17 18:00 08/30/17 17:25 Flomax PO 0.4 mg DAILY [facility]O Administration
--- NOTE | 2017-08-31 08:33 | MR ---
cc: Allan Ayers MD DATE: 08/31/2017 DATE OF OPERATION: 08/31/2017 PREOPERATIVE DIAGNOSIS: Left-sided nephrolithiasis. POSTOPERATIVE DIAGNOSIS: Left-sided nephrolithiasis. SURGEON: Allan Ayers MD PROCEDURE PERFORMED: 1. Cystoscopy. 2. Left ureteral stent placement. PERTINENT FINDINGS: 1. Left mid ureteral stone noted on fluoroscopy. 2. Successful placement of 6 x 26 double-J ureteral stent on the left. HISTORY OF PRESENT ILLNESS: Johnny Brown is a 72-year-old male who was found to have significant left-sided flank pain with a CT scan identifying a 7-8 mm mid left ureteral stone resulting in left side hydronephrosis, significant perinephric stranding. The patient's white count has increased and therefore there was concern for possible urosepsis and now presents with left ureteral stent placement. PROCEDURE IN DETAIL: After proper informed consent was obtained, the patient was taken to the operating room and laid supine on the operating table. The patient was placed under general anesthesia. The patient was placed in lithotomy position and prepped and draped in standard surgical fashion. After proper timeout was completed, the rigid cystoscope was inserted through urethra into bladder. Urethral mucosa was within normal limits without any abnormalities or lesions identified. Upon entering the bladder, bilateral ureteral orifices were identified. The left ureteral orifice was then noted and cannulated using a guidewire. The wire was passed up the left renal collecting system and confirmed ____ via fluoroscopy. The stone was noted on fluoroscopic images, noted to be in the middle left ureter. At this point, a 6 x 26 double-J ureteral stent was successfully placed in left collecting system with good curl in the renal pelvis as well as in the bladder. Upon placement of the stent, purulent material was expressed from the left collecting system. The patient's bladder was emptied and the scope was removed. The patient tolerated the procedure with no complications. DISPOSITION: The patient will be discharged home with followup in clinic once deemed medically stable. MD TONYA Arciniega/HIPOLITO , 08:15 AM , 08:33 AM
[2017-08-31] MEDS ORDERED: fentaNYL Citrate Inj 100 MCG/2 ML Ampul ONE (08:36)
[2017-08-31 09:04] LABS: Lymphocytes 4 % (9-44); Metamyelocytes 1 % (0-1); Monocytes 3 % (0-8); Platelet Estimate Normal (Normal); Platelet Morphology Normal (Normal); RBC Morphology Normal (Normal)
[2017-08-31] MEDS: amLODIPine 10 MG Tablet PO SCH (09:23)
[2017-08-31] MEDS: Insulin NovoLOG Aspart Correctional Sugar Inj SQ SCH ×4 (09:23→21:15)
[2017-08-31] MEDS ORDERED: Lidocaine PF 1% Inj 5 ML Syringe INFILTRATN ONE (12:00)
[2017-08-31] MEDS ORDERED: Phenylephrine/NS 1000 MCG/10ML Syringe IV.PUSH ONE (12:00)
--- NOTE | 2017-08-31 15:16 | P.PNIM ---
Subjective Interval history: Patient is s/p Cystoscopy and Left ureteral stent placement today 08/31/[address] Ayers patient reports less pain then when he came in but continues to have pain with passing urine Physical Exam Vital signs: Vital Signs 08/30/17 16:00 08/30/17 20:00 08/31/17 00:00 Temperature 98.3 F 98.6 F 98.1 F Pulse Rate 111 H 108 H 105 H Respiratory Rate 20 19 17 Blood Pressure 104/64 124/70 98/54 L Pulse Oximetry 94 L 95 94 L 08/31/17 04:00 08/31/17 08:25 08/31/17 08:30 Temperature 97.8 F 98.7 F Pulse Rate 107 H 92 H 90 Respiratory Rate 18 Blood Pressure 98/58 L 103/62 110/63 Pulse Oximetry 94 L 96 96 08/31/17 08:45 08/31/17 08:55 08/31/17 12:00 Temperature 98.5 F 98.2 F Pulse Rate 89 94 H 110 H Respiratory Rate 19 20 20 Blood Pressure 106/51 L 108/55 L 122/73 Pulse Oximetry 95 96 95 Intake & Output 08/30/17 08/31/17 08/31/17 18:59 06:59 18:59 Intake Total 50 / 50 1345 / 1345 300 / 300 Output Total 500 / 500 450 / 450 125 / 125 Balance -450 / -450 895 / 895 175 / 175 Weight 100.9 kg Intake: IV 50 / 50 1105 / 1105 KCl Inj 10 MEQ In 1/2 Normal 1005 / 1005 Saline Inj 1,000 ML @ 100 mls/ hr IV.CONT .Q10H3M [facility] Rx#: [id number] Zosyn 2.25 GM Premix 50 ML @ 100 / 100 100 mls/hr IV.SIG Q6H [facility] Rx#: [id number] Zosyn 3.375 GM Premix 50 ML @ 50 / 50 100 mls/hr IV.SIG Q6H [facility] Rx#: [id number] Oral 240 / 240 Anesthesia Amount 300 / 300 Output: Urine 500 / 500 450 / 450 125 / 125 Estimated Blood Loss 0 / 0 Other: # Voids 5 2 Weight On Admission 100.6 kg Narrative: GENERAL: NAD, AAOx3 SKIN: Warm and dry. CARDIOVASCULAR: Regular rate and rhythm. RESPIRATORY: No accessory muscle use. Clear to auscultation. Breath sounds equal bilaterally. GASTROINTESTINAL: +BS, soft, non-tender, nondistended. MUSCULOSKELETAL: Extremities without clubbing, cyanosis, or edema. No obvious deformities. NEUROLOGICAL: Awake and alert. No focal deficits noted. Motor grossly within normal limits. Five out of 5 muscle strength in the arms and legs. Normal speech. PSYCHIATRIC: Appropriate mood and affect; insight and judgment normal. Results - Labs CBC & Chem 7: 09/04/17 06:02 09/04/17 06:02 Laboratory Results - last 24 hr 08/29/17 08/30/17 08/30/17 23:00 16:44 21:02 WBC RBC Hgb Hct MCV MCH MCHC RDW Plt Count MPV Prelim Diff (Auto) Neut % (Auto) Lymph % (Auto) [place] % (Auto) Eos % (Auto) Baso % (Auto) Neut # (Auto) Lymph # (Auto) [place] # (Auto) Eos # (Auto) Baso # (Auto) WBC Differential Seg Neuts % (Manual) Band Neuts % (Manual) Lymphocytes % (Manual) Monocytes % (Manual) Metamyelocytes % (Man) Abs Neuts (Manual) Differential Comment Platelet Estimate Platelet Morphology RBC Morphology Sodium Potassium Chloride Carbon Dioxide Anion Gap BUN Creatinine Estimated GFR POC Glucose 320 H 206 H Random Glucose Calcium Urine Color Yellow Urine Clarity Hazy H Urine pH 5.0 Ur Specific [place] 1.015 Urine Protein Negative Urine Glucose (UA) 500 or greater Urine Ketones Trace Urine Occult Blood Large H Urine Nitrate Negative Urine Bilirubin Negative Urine Urobilinogen Less than 2 Ur Leukocyte Esterase Trace H Urine RBC 44 H Urine WBC 23 H Ur Squamous Epith Cells 1 Urine Bacteria Rare H Urine Mucus Few H Micro UA Comment Culture indicated Urine Culture Comments Culture indicated 08/31/17 08/31/17 08/31/17 03:55 05:21 05:21 WBC 35.8 H RBC 4.65 Hgb 13.6 Hct 41.4 MCV 89.1 MCH 29.2 MCHC 32.8 RDW 13.8 Plt Count 209 MPV 9.1 Prelim Diff (Auto) Slide review pending Neut % (Auto) 94.0 H Lymph % (Auto) 2.8 L [place] % (Auto) 3.1 Eos % (Auto) 0.0 Baso % (Auto) 0.1 Neut # (Auto) 33.7 H Lymph # (Auto) 1.0 [place] # (Auto) 1.1 H Eos # (Auto) 0.0 Baso # (Auto) 0.0 WBC Differential Manual diff final Seg Neuts % (Manual) 56 Band Neuts % (Manual) 36 H Lymphocytes % (Manual) 4 L Monocytes % (Manual) 3 Metamyelocytes % (Man) 1 Abs Neuts (Manual) 33.3 H Differential Comment . Platelet Estimate Normal Platelet Morphology Normal RBC Morphology Normal Sodium 147 H Potassium 4.0 Chloride 112 H Carbon Dioxide 22.9 Anion Gap 12 BUN 38 H Creatinine 3.27 H Estimated GFR 23 L POC Glucose 160 H Random Glucose 127 H Calcium 8.7 D Urine Color Urine Clarity Urine pH Ur Specific [place] Urine Protein Urine Glucose (UA) Urine Ketones Urine Occult Blood Urine Nitrate Urine Bilirubin Urine Urobilinogen Ur Leukocyte Esterase Urine RBC Urine WBC Ur Squamous Epith Cells Urine Bacteria Urine Mucus Micro UA Comment Urine Culture Comments 08/31/17 08/31/17 08:30 11:46 WBC RBC Hgb Hct MCV MCH MCHC RDW Plt Count MPV Prelim Diff (Auto) Neut % (Auto) Lymph % (Auto) [place] % (Auto) Eos % (Auto) Baso % (Auto) Neut # (Auto) Lymph # (Auto) [place] # (Auto) Eos # (Auto) Baso # (Auto) WBC Differential Seg Neuts % (Manual) Band Neuts % (Manual) Lymphocytes % (Manual) Monocytes % (Manual) Metamyelocytes % (Man) Abs Neuts (Manual) Differential Comment Platelet Estimate Platelet Morphology RBC Morphology Sodium Potassium Chloride Carbon Dioxide Anion Gap BUN Creatinine Estimated GFR POC Glucose 123 H 255 H Random Glucose Calcium Urine Color Urine Clarity Urine pH Ur Specific [place] Urine Protein Urine Glucose (UA) Urine Ketones Urine Occult Blood Urine Nitrate Urine Bilirubin Urine Urobilinogen Ur Leukocyte Esterase Urine RBC Urine WBC Ur Squamous Epith Cells Urine Bacteria Urine Mucus Micro UA Comment Urine Culture Comments Microbiology 08/30/17 11:46 Blood - Peripheral Aerobic Blood Culture - Preliminary Escherichia coli 08/30/17 11:46 Blood - Peripheral Anaerobic Blood Culture - Preliminary No growth in 1 day 08/30/17 11:51 Blood - Peripheral Aerobic Blood Culture - Preliminary gram negative rods 08/30/17 11:51 Blood - Peripheral Anaerobic Blood Culture - Preliminary No growth in 1 day 08/29/17 23:00 Clean Catch Urine Urine Culture - Preliminary gram negative rods Assessment and Plan - Assessment (1) Left nephrolithiasis Code(s): N20.0 - Calculus of kidney Status: Acute Plan: Nephrolithiasis Hydronephrosis Leukocytosis with left shift Shaking chills - Pt is a 72 y/o AAM with Type 2 DM, hypertension, hyperlipidemia, chronic kidney disease stage III, and history of kidney stones in the past. - [place] [facility] [place] with complaints of sudden onset of left flank pain, nausea/vomiting, subjective fevers and shaking chills which began yesterday morning. - Labs in the ED revealed elevated WBC count of 17 with a left shift, worsening baseline CKD with Cr 2.36/BUN 24, GFR 33. - CT Abd/pelvis in the ED revealed a 7 mm obstructing stone in the proximal left ureter causing mild hydronephrosis and induration of the perinephric fat. - Drawn blood cultures x 2 growing e coli and gram negative rods - urine culture also growing gram negative rods - WBC 35.8 (08/31/17) repeat CBC in AM - creatinine 3.27 (08/31/17) recheck BMP in AM - continue Zosyn - Urology consulted - patient s/p Cystoscopy and Left ureteral stent placement today 08/31/[address] Ayers - IVF - Antiemetics PRN - Antipyretics PRN - Supportive care - DVT prophylaxis with SCDs HTN - Pt is normally on Amlodipine 10 mg PO DAILY, Atenolol 100 mg PO DAILY, Lisinopril 40 mg PO DAILY, and Clonidine HCl 0.2 mg PO BID - Hold Atenolol, Lisinopril and Clonidine at this time, BP is low normal and with BRIAN - Cont. Norvasc as BP allows - Clonidine PRN Diabetes mellitus - Hold home meds for now - NovoLog SSI - Accu checks Hyperlipidemia - Cont. home meds Hypernatremia Na 147, chloride 112 patient currently receiving 1/2 NS will recheck BMP stat if NA and Chloride remain high plan to switch to D5W discussed with anastasia COATS who will follow up on pending BMP (2) Hydronephrosis concurrent with and due to calculi of kidney and ureter Code(s): N13.2 - Hydronephrosis with renal and ureteral calculous obstruction Status: Acute (3) Leukocytosis Code(s): D72.829 - Elevated white blood cell count, unspecified Status: Acute (4) Acute worsening of stage 3 chronic kidney disease Code(s): N18.3 - Chronic kidney disease, stage 3 (moderate) Status: Acute (5) Diabetes Code(s): E11.9 - Type 2 diabetes mellitus without complications Status: Acute (6) HTN (hypertension) Code(s): I10 - Essential (primary) hypertension Status: Acute (7) Hyperlipidemia Code(s): E78.5 - Hyperlipidemia, unspecified Status: Acute - Plan Patient examined. Assessment and plan formulated with Teresa RAMIREZ I agree with the above.
[2017-08-31 20:42] LABS: Calcium 8.9 mg/dL (8.5-10.1); Carbon Dioxide 23.1 meq/L (21.0-32.0); Potassium 4.1 meq/L (3.5-5.1)
[2017-09-01] MEDS: Piperacil/Tazo 2.25 GM Premix 50 ML IV.SIG SCH ×5 (00:25→23:55)
[2017-09-01] MEDS: Potassium Chloride Inj 10 MEQ in Sodium Chloride 0.45 % Inj 1,000 ML IV.CONT SCH ×2 (03:48→14:35)
[2017-09-01 07:30] LABS: Carbon Dioxide 21.1 meq/L (21.0-32.0); Potassium 4.1 meq/L (3.5-5.1)
[2017-09-01 07:39] LABS: Hematocrit 43.4 % (39.0-51.0); Hemoglobin 14.2 gm/dL (13.0-17.0); Lymph # (Auto) 0.9 th/mm3 (1.0-4.8); Lymph % (Auto) 3.5 % (9.0-44.0); Mean Corpuscular HGB Conc 32.8 % (32.0-36.0); Mean Corpuscular Hemoglobin 29.4 pg (27.0-34.0); Mean Corpuscular Volume 89.7 fL (80.0-100.0); Mean Platelet Volume 9.2 fL (7.0-11.0); Mono # (Auto) 1.3 th/mm3 (0.0-0.9); Mono % (Auto) 4.9 % (0.0-8.0); Neut # (Auto) 24.6 th/mm3 (1.8-7.7); Neut % (Auto) 91.6 % (16.0-70.0); Platelet Count 197 th/mm3 (150-450); Red Blood Count 4.83 mil/mm3 (4.50-5.90); Red Cell Distribution Width 13.7 % (11.6-17.2); White Blood Count 26.9 th/mm3 (4.0-11.0)
[2017-09-01] MEDS: amLODIPine 10 MG Tablet PO SCH (08:15)
[2017-09-01] MEDS: Senna/Docusate Sodium 8.6/50 MG Tablet PO SCH ×2 (08:15→20:58)
[2017-09-01] MEDS: Insulin NovoLOG Aspart Correctional Sugar Inj SQ SCH ×4 (08:17→20:56)
--- NOTE | 2017-09-01 16:23 | P.PNURO ---
Subjective Patient symptoms today: Pt was seen this afternoon at the bedside He is s/p left ureteral stent placement yesterday due to obstructing 7mm urteral stone. NAD, no issues overnight. Pain is minimal. no hematuria, no f/c/n/v. His leukocytosis is getting better. still at 25. Cr is at 2.2 stable. BC and UC is growing E coli. He is on IV Zosyn. Objective Vital Signs: Vital Signs 08/31/17 20:00 09/01/17 00:00 09/01/17 04:00 Temperature 98.7 F 98.1 F 97.6 F Pulse Rate 98 H 92 H 94 H Respiratory Rate 20 18 18 Blood Pressure 106/66 116/67 116/72 Pulse Oximetry 95 93 L 95 09/01/17 08:00 09/01/17 12:00 Temperature 97.9 F 97.1 F L Pulse Rate 94 H 95 H Respiratory Rate 18 18 Blood Pressure 140/74 132/72 Pulse Oximetry 98 96 Intake & Output 08/31/17 09/01/17 09/01/17 18:59 06:59 18:59 Intake Total 1360 / 1360 1805 / 1805 1105 / 1105 Output Total 625 / 625 950 / 950 Balance 735 / 735 855 / 855 1105 / 1105 Weight 100.7 kg Intake: IV 100 / 100 1055 / 1055 1105 / 1105 KCl Inj 10 MEQ In 1/2 Normal 1005 / 1005 1005 / 1005 Saline Inj 1,000 ML @ 100 mls/ hr IV.CONT .Q10H3M [facility] Rx#: [id number] Zosyn 2.25 GM Premix 50 ML @ 100 / 100 50 / 50 100 / 100 100 mls/hr IV.SIG Q6H [facility] Rx#: [id number] Oral 960 / 960 750 / 750 Anesthesia Amount 300 / 300 Output: Urine 625 / 625 950 / 950 Estimated Blood Loss 0 / 0 Other: # Voids 2 # Bowel Movements 0 Result Diagrams: 09/01/17 06:46 09/01/17 06:46 Medications and IVs: Active Medications Generic Name Dose Route Start Last Admin Trade Name Freq PRN Reason Stop Dose Admin Acetaminophen 650 mg 08/30/17 07:56 Tylenol PO Q4H PRN Temp > 100.4 Hydrocodone Bitart/Acetaminophen 1 tab 08/30/17 09:12 08/31/17 18:48 [place] 5/325 PO 1 tab Q4H PRN Administration pain 2-5 Al Hydroxide/Mg Hydroxide 30 ml 08/30/17 07:56 08/30/17 17:25 Milk Of Magnesia Liq PO 30 ml Q12H PRN Administration Mild Constipation Amlodipine Besylate 10 mg 08/30/17 10:00 09/01/17 08:15 Norvasc PO 10 mg DAILY [facility]O Administration Chlorhexidine Gluconate 3 pack 08/31/17 02:45 Chlorhexidine 2% Cloth TOPICAL 09/03/17 02:32 [facility] Clonidine HCl 0.1 mg 08/30/17 09:38 Catapres PO Q6H PRN systolic BP over 160 Dextrose 50 ml 08/30/17 08:35 D50w Vial IV.PUSH UNSCH PRN PER HYPOGLYCEMIA PROTOCOL Glucagon 1 mg 08/30/17 08:35 Glucagon Inj OTHER PRN PRN for Hypoglycemia Protocol Potassium Chloride 10 meq/ 1,005 mls @ 100 mls/hr 08/30/17 12:00 09/01/17 14: 35 Sodium Chloride IV.CONT 100 mls/hr .Q10H3M SERV[facility]O Administration Piperacillin/Tazobactam/Dextrose 50 mls @ 100 mls/hr 08/30/17 17:00 09/01/17 10:49 Zosyn 2.25 Gm Premix IV.SIG Infused Q6H SERVANDO Infusion Lactated Ringer's 1,000 mls @ 30 mls/hr 08/31/17 02:45 09/01/17 03:47 Lr 1000 Ml Inj IV.SIG 09/03/17 02:32 Not Given .Q24H SERV[facility]O Sodium Chloride 500 mls @ 30 mls/hr 08/31/17 03:00 Ns Inj IV.SIG 09/03/17 02:32 .Q10H [facility]O Insulin Aspart 0 unit 08/30/17 12:00 09/01/17 13:26 Novolog Insulin Correctional Sugar Inj SQ 7 unit ACHS SERV[facility]O Administration Protocol Morphine Sulfate 2 mg 08/30/17 00:30 08/30/17 04:36 Morphine Inj IV.PUSH 2 mg Q4H PRN Administration PAIN 6-10 Ondansetron HCl 4 mg 08/30/17 00:27 08/31/17 03:49 Zofran Odt PO 4 mg Q6H PRN Administration NAUSEA OR VOMITING Povidone Iodine 1 applicatio 08/31/17 02:45 Betadine 5% Antisepsis Kit EACH NARE 09/03/17 02:32 [facility] Pravastatin Sodium 10 mg 08/30/17 21:00 08/31/17 21:11 Pravachol PO 10 mg HS SERVANDO Administration Senna/Docusate Sodium 1 tab 08/30/17 09:00 09/01/17 08:15 Milana-Colace PO Not Given BID [facility] Sodium Chloride 2 ml 08/29/17 22:24 Ns Flush IV.FLUSH PRN PRN FLUSH AFTER USING IV ACCESS Tamsulosin HCl 0.4 mg 08/30/17 18:00 09/01/17 08:16 Flomax PO 0.4 mg DAILY SERV[facility]O Administration Objective Remarks: NAD RRR Lungs are clear Assessment and Plan - Plan 72y.o m with 7-8mm left proximal ureteral stone and hydro. s/p Left stent placement yesterday - Continue care as per primary team - Continue IV fluids and antbx - Follow up on final C&S and adjust antbx as needed. - Once stable he can be d/c home and see urology as outpt for further management of his stone and stent
--- NOTE | 2017-09-01 16:59 | P.PNIM ---
Subjective Interval history: Patient resting in bed with family members at bedside reports minimal pain with passing urine, denies hematuria Physical Exam Vital signs: Vital Signs 08/31/17 20:00 09/01/17 00:00 09/01/17 04:00 Temperature 98.7 F 98.1 F 97.6 F Pulse Rate 98 H 92 H 94 H Respiratory Rate 20 18 18 Blood Pressure 106/66 116/67 116/72 Pulse Oximetry 95 93 L 95 09/01/17 08:00 09/01/17 12:00 Temperature 97.9 F 97.1 F L Pulse Rate 94 H 95 H Respiratory Rate 18 18 Blood Pressure 140/74 132/72 Pulse Oximetry 98 96 Intake & Output 08/31/17 09/01/17 09/01/17 18:59 06:59 18:59 Intake Total 1360 / 1360 1805 / 1805 1105 / 1105 Output Total 625 / 625 950 / 950 Balance 735 / 735 855 / 855 1105 / 1105 Weight 100.7 kg Intake: IV 100 / 100 1055 / 1055 1105 / 1105 KCl Inj 10 MEQ In 1/2 Normal 1005 / 1005 1005 / 1005 Saline Inj 1,000 ML @ 100 mls/ hr IV.CONT .Q10H3M [facility] Rx#: [id number] Zosyn 2.25 GM Premix 50 ML @ 100 / 100 50 / 50 100 / 100 100 mls/hr IV.SIG Q6H [facility] Rx#: [id number] Oral 960 / 960 750 / 750 Anesthesia Amount 300 / 300 Output: Urine 625 / 625 950 / 950 Estimated Blood Loss 0 / 0 Other: # Voids 2 # Bowel Movements 0 Narrative: GENERAL: NAD, AAOx3 SKIN: Warm and dry. CARDIOVASCULAR: Regular rate and rhythm. RESPIRATORY: No accessory muscle use. Clear to auscultation. Breath sounds equal bilaterally. GASTROINTESTINAL: +BS, soft, non-tender, nondistended. MUSCULOSKELETAL: Extremities without clubbing, cyanosis, or edema. No obvious deformities. NEUROLOGICAL: Awake and alert. No focal deficits noted. Motor grossly within normal limits. Five out of 5 muscle strength in the arms and legs. Normal speech. PSYCHIATRIC: Appropriate mood and affect; insight and judgment normal. Results - Labs CBC & Chem 7: 09/04/17 06:02 09/04/17 06:02 Microbiology 08/30/17 11:46 Blood - Peripheral Aerobic Blood Culture - Preliminary Escherichia coli 08/30/17 11:51 Blood - Peripheral Aerobic Blood Culture - Final Escherichia coli 08/29/17 23:00 Clean Catch Urine Urine Culture - Final Escherichia coli - Imaging Abdomen/Pelvis CT 08/29/17 22:24 CONCLUSION: 1. 7 mm obstructing stone in the proximal left ureter causing mild hydronephrosis and induration of the perinephric fat. Abdomen X-Ray 08/30/17 00:00 CONCLUSION: Multiple dilated loops of small bowel could be ileus. Follow-up recommended. - Procedures s/p Cystoscopy and Left ureteral stent placement today 08/31/[address] Ayers Assessment and Plan - Assessment (1) Left nephrolithiasis Code(s): N20.0 - Calculus of kidney Status: Acute Plan: Nephrolithiasis Hydronephrosis Leukocytosis with left shift Shaking chills - Pt is a 72 y/o AAM with Type 2 DM, hypertension, hyperlipidemia, chronic kidney disease stage III, and history of kidney stones in the past. - Patient presented to the ED at [facility] [place] with complaints of sudden onset of left flank pain, nausea/vomiting, subjective fevers and shaking chills which began yesterday morning. - Labs in the ED revealed elevated WBC count of 17 with a left shift, worsening baseline CKD with Cr 2.36/BUN 24, GFR 33. - CT Abd/pelvis in the ED revealed a 7 mm obstructing stone in the proximal left ureter causing mild hydronephrosis and induration of the perinephric fat. - Drawn blood cultures x 2 growing e coli - urine culture also growing e coli - WBC 35.8 (08/31) -> 26.9 (09/01) - creatinine 3.27 (08/31) -> 2.25 (09/01) - continue Zosyn - Urology consulted, appreciate input - patient s/p Cystoscopy and Left ureteral stent placement today 08/31/[address] Ayers - IVF - Antiemetics PRN - Antipyretics PRN - Supportive care - DVT prophylaxis with SCDs HTN - Pt is normally on Amlodipine 10 mg PO DAILY, Atenolol 100 mg PO DAILY, Lisinopril 40 mg PO DAILY, and Clonidine HCl 0.2 mg PO BID - Hold Atenolol, Lisinopril and Clonidine at this time, BP is low normal and with BRIAN - Cont. Norvasc as BP allows - Clonidine PRN Diabetes mellitus - Hold home Tanzeum 50 mg sub Q Q7D, Jardiance 25 mg PO daily and glimepiride 4 mg PO BID - NovoLog SSI - Accu checks - (09/01) glucose running high will add Levemir 5 units SQ BID Hyperlipidemia - Cont. home meds Hypernatremia Na 147 (08/31) -> 148 (08/31) chloride 112 (08/31) -> 116 (09/01) patient currently receiving 1/2 NS change to D5W at 50 ml/H x 1 L will recheck BMP in AM (2) Hydronephrosis concurrent with and due to calculi of kidney and ureter Code(s): N13.2 - Hydronephrosis with renal and ureteral calculous obstruction Status: Acute (3) Leukocytosis Code(s): D72.829 - Elevated white blood cell count, unspecified Status: Acute (4) Acute worsening of stage 3 chronic kidney disease Code(s): N18.3 - Chronic kidney disease, stage 3 (moderate) Status: Acute (5) Diabetes Code(s): E11.9 - Type 2 diabetes mellitus without complications Status: Acute (6) HTN (hypertension) Code(s): I10 - Essential (primary) hypertension Status: Acute (7) Hyperlipidemia Code(s): E78.5 - Hyperlipidemia, unspecified Status: Acute - Attending Attestation Patient examined. Assessment and plan formulated with Teresa RAMIREZ I agree with the above.
[2017-09-01] MEDS ORDERED: Dextrose 5% in Water Inj 1,000 ML IV.CONT SCH (17:00)
[2017-09-01] MEDS: Insulin Detemir Inj 1,000 UNIT/10 ML Vial SQ SCH (20:58)
[2017-09-02] MEDS: Piperacil/Tazo 2.25 GM Premix 50 ML IV.SIG SCH ×2 (04:45→10:16)
[2017-09-02 07:09] LABS: Baso % (Auto) 0.3 % (0.0-2.0); Eos % (Auto) 0.2 % (0.0-4.0); Hematocrit 45.7 % (39.0-51.0); Hemoglobin 14.8 gm/dL (13.0-17.0); Lymph # (Auto) 1.2 th/mm3 (1.0-4.8); Lymph % (Auto) 9.1 % (9.0-44.0); Mean Corpuscular HGB Conc 32.5 % (32.0-36.0); Mean Corpuscular Hemoglobin 29.2 pg (27.0-34.0); Mean Corpuscular Volume 89.9 fL (80.0-100.0); Mean Platelet Volume 9.5 fL (7.0-11.0); Mono % (Auto) 7.8 % (0.0-8.0); Neut # (Auto) 10.9 th/mm3 (1.8-7.7); Neut % (Auto) 82.6 % (16.0-70.0); Platelet Count 199 th/mm3 (150-450); Red Blood Count 5.08 mil/mm3 (4.50-5.90); Red Cell Distribution Width 14.2 % (11.6-17.2); White Blood Count 13.2 th/mm3 (4.0-11.0)
[2017-09-02 07:32] LABS: Calcium 8.9 mg/dL (8.5-10.1); Carbon Dioxide 23.1 meq/L (21.0-32.0); Potassium 3.9 meq/L (3.5-5.1)
[2017-09-02 08:08] LABS: Lymphocytes 10 % (9-44); Monocytes 6 % (0-8)
[2017-09-02] MEDS: Insulin NovoLOG Aspart Correctional Sugar Inj SQ SCH ×4 (08:08→21:07)
[2017-09-02 08:09] LABS: Platelet Estimate Normal (Normal); Platelet Morphology Normal (Normal)
[2017-09-02] MEDS: Senna/Docusate Sodium 8.6/50 MG Tablet PO SCH ×2 (08:09→21:08)
[2017-09-02] MEDS: Insulin Detemir Inj 1,000 UNIT/10 ML Vial SQ SCH ×2 (08:09→21:08)
[2017-09-02] MEDS: amLODIPine 10 MG Tablet PO SCH (08:09)
--- NOTE | 2017-09-02 14:25 | P.PNIM ---
Subjective Interval history: Patient resting in bed with family members at bedside reports feeling weak today Physical Exam Vital signs: Vital Signs 09/01/17 18:36 09/01/17 20:00 09/01/17 20:11 Temperature 98.4 F Pulse Rate 89 87 91 H Respiratory Rate 20 Blood Pressure 136/74 Pulse Oximetry 96 09/01/17 23:48 09/02/17 00:00 09/02/17 03:57 Temperature 98.7 F Pulse Rate 88 88 97 H Respiratory Rate 18 Blood Pressure 148/73 H Pulse Oximetry 94 L 09/02/17 04:00 09/02/17 08:00 09/02/17 12:00 Temperature 97.6 F 97.9 F 97.7 F Pulse Rate 93 H 95 H 116 H Respiratory Rate 18 20 20 Blood Pressure 133/79 140/79 139/73 Pulse Oximetry 95 95 98 Intake & Output 09/01/17 09/02/17 09/02/17 18:59 06:59 18:59 Intake Total 1155 / 1155 760 / 760 50 / 50 Output Total 1200 / 1200 Balance 1155 / 1155 -440 / -440 50 / 50 Weight 100.5 kg Intake: IV 1155 / 1155 100 / 100 50 / 50 KCl Inj 10 MEQ In 1/2 Normal 1005 / 1005 Saline Inj 1,000 ML @ 100 mls/ hr IV.CONT .Q10H3M SERVANDO Rx#: [id number] Zosyn 2.25 GM Premix 50 ML @ 150 / 150 100 / 100 50 / 50 100 mls/hr IV.SIG Q6H SERVANDO Rx#: [id number] Oral 660 / 660 Output: Urine 1200 / 1200 Narrative: GENERAL: NAD, AAOx3 SKIN: Warm and dry. CARDIOVASCULAR: Regular rate and rhythm. RESPIRATORY: No accessory muscle use. Clear to auscultation. Breath sounds equal bilaterally. GASTROINTESTINAL: +BS, soft, non-tender, nondistended. MUSCULOSKELETAL: Extremities without clubbing, cyanosis, or edema. No obvious deformities. NEUROLOGICAL: Awake and alert. No focal deficits noted. Motor grossly within normal limits. Five out of 5 muscle strength in the arms and legs. Normal speech. PSYCHIATRIC: Appropriate mood and affect; insight and judgment normal. Results - Labs CBC & Chem 7: 09/04/17 06:02 09/04/17 06:02 Laboratory Results - last 24 hr 09/01/17 09/01/17 09/02/17 17:41 20:44 06:15 WBC 13.2 H D RBC 5.08 Hgb 14.8 Hct 45.7 MCV 89.9 MCH 29.2 MCHC 32.5 RDW 14.2 Plt Count 199 MPV 9.5 Prelim Diff (Auto) Slide review pending Neut % (Auto) 82.6 H Lymph % (Auto) 9.1 [place] % (Auto) 7.8 Eos % (Auto) 0.2 Baso % (Auto) 0.3 Neut # (Auto) 10.9 H Lymph # (Auto) 1.2 [place] # (Auto) 1.0 H Eos # (Auto) 0.0 Baso # (Auto) 0.0 WBC Differential Manual diff final Seg Neuts % (Manual) 77 H Band Neuts % (Manual) 6 Lymphocytes % (Manual) 10 Monocytes % (Manual) 6 Basophils % (Manual) 1 Abs Neuts (Manual) 11.0 H Differential Comment . Platelet Estimate Normal Platelet Morphology Normal Sodium Potassium Chloride Carbon Dioxide Anion Gap BUN Creatinine Estimated GFR POC Glucose 219 H 179 H Random Glucose Calcium 09/02/17 09/02/17 09/02/17 06:15 07:24 11:18 WBC RBC Hgb Hct MCV MCH MCHC RDW Plt Count MPV Prelim Diff (Auto) Neut % (Auto) Lymph % (Auto) [place] % (Auto) Eos % (Auto) Baso % (Auto) Neut # (Auto) Lymph # (Auto) [place] # (Auto) Eos # (Auto) Baso # (Auto) WBC Differential Seg Neuts % (Manual) Band Neuts % (Manual) Lymphocytes % (Manual) Monocytes % (Manual) Basophils % (Manual) Abs Neuts (Manual) Differential Comment Platelet Estimate Platelet Morphology Sodium 148 H Potassium 3.9 Chloride 115 H Carbon Dioxide 23.1 Anion Gap 10 BUN 27 H Creatinine 2.03 H Estimated GFR 39 L POC Glucose 152 H 239 H Random Glucose 186 H Calcium 8.9 Microbiology 08/30/17 11:46 Blood - Peripheral Aerobic Blood Culture - Final Escherichia coli 08/30/17 11:46 Blood - Peripheral Anaerobic Blood Culture - Preliminary No growth in 3 days 08/30/17 11:51 Blood - Peripheral Aerobic Blood Culture - Final Escherichia coli 08/30/17 11:51 Blood - Peripheral Anaerobic Blood Culture - Preliminary No growth in 3 days - Procedures s/p Cystoscopy and Left ureteral stent placement today 08/31/[address] Ayers Assessment and Plan - Assessment (1) Left nephrolithiasis Code(s): N20.0 - Calculus of kidney Status: Acute Plan: Nephrolithiasis Hydronephrosis Leukocytosis with left shift Shaking chills - Pt is a 72 y/o AAM with Type 2 DM, hypertension, hyperlipidemia, chronic kidney disease stage III, and history of kidney stones in the past. - Patient presented to the ED at [facility] [place] on 08/29/17 with complaints of sudden onset of left flank pain, nausea/vomiting, subjective fevers and shaking chills which began yesterday morning. - Labs in the ED revealed elevated WBC count of 17 with a left shift, worsening baseline CKD with Cr 2.36/BUN 24, GFR 33. - CT Abd/pelvis in the ED revealed a 7 mm obstructing stone in the proximal left ureter causing mild hydronephrosis and induration of the perinephric fat. - Drawn blood cultures x 2 growing e coli - repeat blood culture ordered - urine culture also growing e coli - WBC 35.8 (08/31) -> 26.9 (09/01) -> 13.2 (09/02) - creatinine 3.27 (08/31) -> 2.25 (09/01) -> 2.03 (09/02) - continue Zosyn - Urology consulted, appreciate input - patient s/p Cystoscopy and Left ureteral stent placement today 08/31/[address] Ayers - IVF - Antiemetics PRN - Antipyretics PRN - Supportive care - DVT prophylaxis with SCDs HTN - Pt is normally on Amlodipine 10 mg PO DAILY, Atenolol 100 mg PO DAILY, Lisinopril 40 mg PO DAILY, and Clonidine HCl 0.2 mg PO BID - Hold Lisinopril and Clonidine at this time, BP is low normal and with BRIAN - Cont. Norvasc as BP allows - resume metoprolol at lower dose 50 mg PO BID - Clonidine PRN Tachycardia - HR elevated today, EKG reveals SR rate of 96 - will start metoprolol at 50 mg PO BID - continue to monitor Diabetes mellitus - Hold home Tanzeum 50 mg sub Q Q7D, Jardiance 25 mg PO daily and glimepiride 4 mg PO BID - NovoLog SSI - Accu checks - (09/01) glucose running high will add Levemir 5 units SQ BID Hyperlipidemia - Cont. home meds Hypernatremia Na 147 (08/31) -> 148 (09/01) -> 148 (09/02) chloride 112 (08/31) -> 116 (09/01) -> 115 (09/02) patient currently receiving D5W at 50 ml/H x 1 L will recheck BMP at 1300 pending PT seven days per week Patient may need home with PT vs SNF at [place] (2) Hydronephrosis concurrent with and due to calculi of kidney and ureter Code(s): N13.2 - Hydronephrosis with renal and ureteral calculous obstruction Status: Acute (3) Leukocytosis Code(s): D72.829 - Elevated white blood cell count, unspecified Status: Acute (4) Acute worsening of stage 3 chronic kidney disease Code(s): N18.3 - Chronic kidney disease, stage 3 (moderate) Status: Acute (5) Diabetes Code(s): E11.9 - Type 2 diabetes mellitus without complications Status: Acute (6) HTN (hypertension) Code(s): I10 - Essential (primary) hypertension Status: Acute (7) Hyperlipidemia Code(s): E78.5 - Hyperlipidemia, unspecified Status: Acute - Attending Attestation Patient examined. Assessment and plan formulated with Teresa RAMIREZ I agree with the above.
[2017-09-02 14:40] LABS: Calcium 9.2 mg/dL (8.5-10.1); Carbon Dioxide 23.1 meq/L (21.0-32.0); Potassium 4.1 meq/L (3.5-5.1)
[2017-09-02] MEDS: Metoprolol Tartrate 50 MG Tablet PO SCH ×2 (15:14→21:07)
[2017-09-03 05:06] LABS: Calcium 8.8 mg/dL (8.5-10.1); Carbon Dioxide 23.9 meq/L (21.0-32.0); Potassium 3.9 meq/L (3.5-5.1)
[2017-09-03 05:08] LABS: Baso % (Auto) 0.3 % (0.0-2.0); Eos % (Auto) 0.2 % (0.0-4.0); Hemoglobin 15.1 gm/dL (13.0-17.0); Lymph # (Auto) 1.2 th/mm3 (1.0-4.8); Lymph % (Auto) 11.7 % (9.0-44.0); Mean Corpuscular HGB Conc 33.5 % (32.0-36.0); Mean Corpuscular Hemoglobin 29.8 pg (27.0-34.0); Mean Platelet Volume 9.3 fL (7.0-11.0); Mono # (Auto) 0.9 th/mm3 (0.0-0.9); Mono % (Auto) 9.1 % (0.0-8.0); Neut # (Auto) 7.7 th/mm3 (1.8-7.7); Neut % (Auto) 78.7 % (16.0-70.0); Platelet Count 198 th/mm3 (150-450); Red Blood Count 5.05 mil/mm3 (4.50-5.90); Red Cell Distribution Width 14.1 % (11.6-17.2); White Blood Count 9.9 th/mm3 (4.0-11.0)
[2017-09-03] MEDS: amLODIPine 10 MG Tablet PO SCH (08:49)
[2017-09-03] MEDS: Metoprolol Tartrate 50 MG Tablet PO SCH ×2 (08:49→20:35)
[2017-09-03] MEDS: Senna/Docusate Sodium 8.6/50 MG Tablet PO SCH ×2 (08:52→20:35)
[2017-09-03] MEDS: Insulin NovoLOG Aspart Correctional Sugar Inj SQ SCH ×4 (09:15→20:35)
[2017-09-03] MEDS: Insulin Detemir Inj 1,000 UNIT/10 ML Vial SQ SCH ×2 (09:16→20:36)
--- NOTE | 2017-09-03 16:07 | ECG ---
Date Performed: 09/02/2017 Time Performed: 13:38:55 PTAGE: 72 years EKG: Sinus rhythm POSSIBLE INFERIOR MYOCARDIAL INFARCTION, OF UNDETERMINED AGE BORDERLINE VOLTAGE CRITERIA FOR LVH BOR DERLINE ECG Compared to PREVIOUS TRACING , no significant change. PREVIOUS TRACIN08/29/2017 22.35 DOCTOR: Ranulfo Yee Interpretating Date/Time 09/03/2017 16:05:21
--- NOTE | 2017-09-03 16:43 | P.PNIM ---
Subjective Interval history: No new complaints. Physical Exam Vital signs: Vital Signs 09/02/17 20:00 09/03/17 00:00 09/03/17 04:00 Temperature 98.1 F 98.7 F 98.2 F Pulse Rate 87 82 97 H Respiratory Rate 18 18 18 Blood Pressure 148/85 H 138/80 130/79 Pulse Oximetry 98 97 97 09/03/17 08:00 09/03/17 12:00 Temperature 98.1 F 98.0 F Pulse Rate 113 H 95 H Respiratory Rate 18 18 Blood Pressure 140/81 134/70 Pulse Oximetry 96 97 Narrative: GENERAL: NAD, AAOx3 SKIN: Warm and dry. CARDIOVASCULAR: Regular rate and rhythm. RESPIRATORY: No accessory muscle use. Clear to auscultation. Breath sounds equal bilaterally. GASTROINTESTINAL: +BS, soft, non-tender, nondistended. MUSCULOSKELETAL: Extremities without clubbing, cyanosis, or edema. No obvious deformities. NEUROLOGICAL: Awake and alert. No focal deficits noted. Motor grossly within normal limits. Five out of 5 muscle strength in the arms and legs. Normal speech. PSYCHIATRIC: Appropriate mood and affect; insight and judgment normal. Results - Labs CBC & Chem 7: 09/03/17 04:07 09/03/17 04:07 Laboratory Results - last 24 hr 09/02/17 09/03/17 09/03/17 21:01 04:07 04:07 WBC 9.9 RBC 5.05 Hgb 15.1 Hct 45.0 MCV 89.0 MCH 29.8 MCHC 33.5 RDW 14.1 Plt Count 198 MPV 9.3 Prelim Diff (Auto) Slide review pending Neut % (Auto) 78.7 H Lymph % (Auto) 11.7 [place] % (Auto) 9.1 H Eos % (Auto) 0.2 Baso % (Auto) 0.3 Neut # (Auto) 7.7 Lymph # (Auto) 1.2 [place] # (Auto) 0.9 Eos # (Auto) 0.0 Baso # (Auto) 0.0 WBC Differential . Diff Scan Auto diff confirmed Differential Comment . Sodium 147 H Potassium 3.9 Chloride 115 H Carbon Dioxide 23.9 Anion Gap 8 BUN 26 H Creatinine 1.74 H Estimated GFR 47 L POC Glucose 183 H Random Glucose 156 H Calcium 8.8 09/03/17 09/03/17 09/03/17 08:07 11:36 16:22 WBC RBC Hgb Hct MCV MCH MCHC RDW Plt Count MPV Prelim Diff (Auto) Neut % (Auto) Lymph % (Auto) [place] % (Auto) Eos % (Auto) Baso % (Auto) Neut # (Auto) Lymph # (Auto) [place] # (Auto) Eos # (Auto) Baso # (Auto) WBC Differential Diff Scan Differential Comment Sodium Potassium Chloride Carbon Dioxide Anion Gap BUN Creatinine Estimated GFR POC Glucose 167 H 250 H 246 H Random Glucose Calcium Microbiology 09/02/17 13:50 Blood - Peripheral Aerobic Blood Culture - Preliminary No growth in 1 day 09/02/17 13:50 Blood - Peripheral Anaerobic Blood Culture - Preliminary No growth in 1 day 09/02/17 13:50 Blood - Peripheral Aerobic Blood Culture - Preliminary No growth in 1 day 09/02/17 13:50 Blood - Peripheral Anaerobic Blood Culture - Preliminary No growth in 1 day 08/30/17 11:46 Blood - Peripheral Aerobic Blood Culture - Final Escherichia coli 08/30/17 11:46 Blood - Peripheral Anaerobic Blood Culture - Preliminary No growth in 4 days 08/30/17 11:51 Blood - Peripheral Aerobic Blood Culture - Final Escherichia coli 08/30/17 11:51 Blood - Peripheral Anaerobic Blood Culture - Preliminary No growth in 4 days - Procedures s/p Cystoscopy and Left ureteral stent placement today 08/31/[address] Ayers Assessment and Plan - Assessment (1) Left nephrolithiasis Code(s): N20.0 - Calculus of kidney Status: Acute Plan: Nephrolithiasis Hydronephrosis Leukocytosis with left shift Shaking chills - Pt is a 72 y/o AAM with Type 2 DM, hypertension, hyperlipidemia, chronic kidney disease stage III, and history of kidney stones in the past. - [place] [facility] [place] with complaints of sudden onset of left flank pain, nausea/vomiting, subjective fevers and shaking chills which began yesterday morning. - Labs in the ED revealed elevated WBC count of 17 with a left shift, worsening baseline CKD with Cr 2.36/BUN 24, GFR 33. - CT Abd/pelvis in the ED revealed a 7 mm obstructing stone in the proximal left ureter causing mild hydronephrosis and induration of the perinephric fat. - Drawn blood cultures x 2 growing e coli - repeat blood culture (09/02) --> pending - urine culture also growing e coli - WBC 35.8 (08/31) -> 26.9 (09/01) -> 13.2 (09/02) --> 9.9 (09/03) - creatinine 3.27 (08/31) -> 2.25 (09/01) -> 2.03 (09/02) --> 1.74 (09/03) - Zosyn --> changed to Rocephin 09/02 - Urology consulted, appreciate input - patient s/p Cystoscopy and Left ureteral stent placement today 08/31/[address] Ayers - IVF - Antiemetics PRN - Antipyretics PRN - Supportive care - DVT prophylaxis with SCDs - anticipate d/c to home 09/05 HTN - Pt is normally on Amlodipine 10 mg PO DAILY, Atenolol 100 mg PO DAILY, Lisinopril 40 mg PO DAILY, and Clonidine HCl 0.2 mg PO BID - Hold Lisinopril and Clonidine at this time, BP is low normal and with BRIAN - Cont. Norvasc as BP allows - resume metoprolol at lower dose 50 mg PO BID - Clonidine PRN Tachycardia - HR elevated today, EKG reveals SR rate of 96 - will start metoprolol at 50 mg PO BID - continue to monitor Diabetes mellitus - Hold home Tanzeum 50 mg sub Q Q7D, Jardiance 25 mg PO daily and glimepiride 4 mg PO BID - NovoLog SSI - Accu checks - (09/01) glucose running high will add Levemir 5 units SQ BID Hyperlipidemia - Cont. home meds Hypernatremia Na 147 (08/31) -> 148 (09/01) -> 148 (09/02) chloride 112 (08/31) -> 116 (09/01) -> 115 (09/02) patient currently receiving D5W at 50 ml/H x 1 L will recheck BMP at 1300 pending PT seven days per week Patient may need home with PT vs SNF at [place] (2) Hydronephrosis concurrent with and due to calculi of kidney and ureter Code(s): N13.2 - Hydronephrosis with renal and ureteral calculous obstruction Status: Acute (3) Leukocytosis Code(s): D72.829 - Elevated white blood cell count, unspecified Status: Acute (4) Acute worsening of stage 3 chronic kidney disease Code(s): N18.3 - Chronic kidney disease, stage 3 (moderate) Status: Acute (5) Diabetes Code(s): E11.9 - Type 2 diabetes mellitus without complications Status: Acute (6) HTN (hypertension) Code(s): I10 - Essential (primary) hypertension Status: Acute (7) Hyperlipidemia Code(s): E78.5 - Hyperlipidemia, unspecified Status: Acute
[2017-09-04 07:11] LABS: Baso % (Auto) 0.5 % (0.0-2.0); Eos % (Auto) 0.5 % (0.0-4.0); Hematocrit 44.9 % (39.0-51.0); Hemoglobin 14.9 gm/dL (13.0-17.0); Lymph % (Auto) 11.1 % (9.0-44.0); Mean Corpuscular HGB Conc 33.3 % (32.0-36.0); Mean Corpuscular Hemoglobin 29.7 pg (27.0-34.0); Mean Corpuscular Volume 89.2 fL (80.0-100.0); Mean Platelet Volume 8.9 fL (7.0-11.0); Mono # (Auto) 0.9 th/mm3 (0.0-0.9); Mono % (Auto) 9.8 % (0.0-8.0); Neut # (Auto) 7.1 th/mm3 (1.8-7.7); Neut % (Auto) 78.1 % (16.0-70.0); Platelet Count 213 th/mm3 (150-450); Red Blood Count 5.04 mil/mm3 (4.50-5.90); Red Cell Distribution Width 14.1 % (11.6-17.2); White Blood Count 9.1 th/mm3 (4.0-11.0)
[2017-09-04 07:35] LABS: Calcium 8.8 mg/dL (8.5-10.1); Carbon Dioxide 22.9 meq/L (21.0-32.0); Magnesium 2.2 mg/dL (1.5-2.5); Potassium 3.9 meq/L (3.5-5.1)
[2017-09-04] MEDS: Metoprolol Tartrate 50 MG Tablet PO SCH ×2 (08:50→20:45)
[2017-09-04] MEDS: Insulin NovoLOG Aspart Correctional Sugar Inj SQ SCH ×4 (08:51→20:45)
[2017-09-04] MEDS: amLODIPine 10 MG Tablet PO SCH (08:51)
[2017-09-04] MEDS: Insulin Detemir Inj 1,000 UNIT/10 ML Vial SQ SCH ×2 (08:52→20:44)
[2017-09-04] MEDS: Senna/Docusate Sodium 8.6/50 MG Tablet PO SCH ×2 (08:52→20:46)
[2017-09-04 09:02] LABS: Lymphocytes 13 % (9-44); Monocytes 16 % (0-8); Myelocytes 2 % (0-0); Platelet Estimate Normal (Normal); Platelet Morphology Normal (Normal); RBC Morphology Normal (Normal)
--- NOTE | 2017-09-04 10:24 | P.PNIM ---
Subjective Interval history: No new complaints overnight Pt reports that he is eating normally No reported constipation or diarrhea. He does have some pain on the left flank when urinating Physical Exam Vital signs: Vital Signs 09/03/17 12:00 09/03/17 16:00 09/03/17 20:00 Temperature 98.0 F 97.4 F L 98.1 F Pulse Rate 95 H 87 94 H Respiratory Rate 18 18 18 Blood Pressure 134/70 151/74 H 137/76 Pulse Oximetry 97 98 96 09/04/17 00:00 09/04/17 04:00 09/04/17 08:00 Temperature 97.6 F 97.1 F L 98.1 F Pulse Rate 91 H 96 H 97 H Respiratory Rate 18 18 20 Blood Pressure 150/92 H 139/85 137/74 Pulse Oximetry 97 96 95 Intake & Output 09/03/17 09/04/17 09/04/17 18:59 06:59 18:59 Intake Total 720 / 720 Output Total 2700 / 2700 Balance -1979 / Intake: Oral 720 / 720 Output: Urine 2700 / 2700 Other: # Voids 3 Date of Last Bowel Movement 09/02/17 09/02/17 # Bowel Movements 0 Narrative: GENERAL: NAD, AAOx3 CARDIO: Regular RESP: Clear to auscultation. Breath sounds equal bilaterally. ABD: +BS, soft, non-tender, nondistended. EXT: Extremities without clubbing, cyanosis, or edema. No obvious deformities. Results - Labs CBC & Chem 7: 09/04/17 06:02 09/04/17 06:02 Laboratory Results - last 24 hr 09/03/17 09/03/17 09/03/17 11:36 16:22 19:55 WBC RBC Hgb Hct MCV MCH MCHC RDW Plt Count MPV Prelim Diff (Auto) Neut % (Auto) Lymph % (Auto) [place] % (Auto) Eos % (Auto) Baso % (Auto) Neut # (Auto) Lymph # (Auto) [place] # (Auto) Eos # (Auto) Baso # (Auto) WBC Differential Seg Neuts % (Manual) Band Neuts % (Manual) Lymphocytes % (Manual) Monocytes % (Manual) Myelocytes % (Man) Abs Neuts (Manual) Differential Comment Platelet Estimate Platelet Morphology RBC Morphology Sodium Potassium Chloride Carbon Dioxide Anion Gap BUN Creatinine Estimated GFR POC Glucose 250 H 246 H 260 H Random Glucose Calcium Magnesium 09/04/17 09/04/17 09/04/17 06:02 06:02 07:35 WBC 9.1 RBC 5.04 Hgb 14.9 Hct 44.9 MCV 89.2 MCH 29.7 MCHC 33.3 RDW 14.1 Plt Count 213 MPV 8.9 Prelim Diff (Auto) Slide review pending Neut % (Auto) 78.1 H Lymph % (Auto) 11.1 [place] % (Auto) 9.8 H Eos % (Auto) 0.5 Baso % (Auto) 0.5 Neut # (Auto) 7.1 Lymph # (Auto) 1.0 [place] # (Auto) 0.9 Eos # (Auto) 0.0 Baso # (Auto) 0.0 WBC Differential Manual diff final Seg Neuts % (Manual) 68 Band Neuts % (Manual) 1 Lymphocytes % (Manual) 13 Monocytes % (Manual) 16 H Myelocytes % (Man) 2 H Abs Neuts (Manual) 6.5 Differential Comment . Platelet Estimate Normal Platelet Morphology Normal RBC Morphology Normal Sodium 148 H Potassium 3.9 Chloride 113 H Carbon Dioxide 22.9 Anion Gap 12 BUN 24 H Creatinine 1.66 H Estimated GFR 49 L POC Glucose 156 H Random Glucose 160 H Calcium 8.8 Magnesium 2.2 Microbiology 09/02/17 13:50 Blood - Peripheral Aerobic Blood Culture - Preliminary No growth in 1 day 09/02/17 13:50 Blood - Peripheral Anaerobic Blood Culture - Preliminary No growth in 1 day 09/02/17 13:50 Blood - Peripheral Aerobic Blood Culture - Preliminary No growth in 1 day 09/02/17 13:50 Blood - Peripheral Anaerobic Blood Culture - Preliminary No growth in 1 day 08/30/17 11:46 Blood - Peripheral Aerobic Blood Culture - Final Escherichia coli 08/30/17 11:46 Blood - Peripheral Anaerobic Blood Culture - Preliminary No growth in 4 days 08/30/17 11:51 Blood - Peripheral Aerobic Blood Culture - Final Escherichia coli 08/30/17 11:51 Blood - Peripheral Anaerobic Blood Culture - Preliminary No growth in 4 days - Imaging Abdomen/Pelvis CT 08/29/17 22:24 CONCLUSION: 1. 7 mm obstructing stone in the proximal left ureter causing mild hydronephrosis and induration of the perinephric fat. Abdomen X-Ray 08/30/17 00:00 CONCLUSION: Multiple dilated loops of small bowel could be ileus. Follow-up recommended. - Procedures s/p Cystoscopy and Left ureteral stent placement today 08/31/[address] Ayers Assessment and Plan - Assessment (1) Left nephrolithiasis Code(s): N20.0 - Calculus of kidney Status: Acute Plan: Nephrolithiasis Hydronephrosis Leukocytosis with left shift Shaking chills - Pt is a 72 y/o AAM with Type 2 DM, hypertension, hyperlipidemia, chronic kidney disease stage III, and history of kidney stones in the past. - Patient presented to the ED at [facility] [place] on 08/29/17 with complaints of sudden onset of left flank pain, nausea/vomiting, subjective fevers and shaking chills which began yesterday morning. - Labs in the ED revealed elevated WBC count of 17 with a left shift, worsening baseline CKD with Cr 2.36/BUN 24, GFR 33. - CT Abd/pelvis in the ED revealed a 7 mm obstructing stone in the proximal left ureter causing mild hydronephrosis and induration of the perinephric fat. - Drawn blood cultures x 2 growing e coli - repeat blood culture (09/02) --> pending - urine culture also growing e coli - WBC 35.8 (08/31) -> 26.9 (09/01) -> 13.2 (09/02) --> 9.9 (09/03) --> 9.1 (09/04) - creatinine 3.27 (08/31) -> 2.25 (09/01) -> 2.03 (09/02) --> 1.74 (09/03) --> 1.66 (09/04) - Zosyn --> changed to Rocephin 09/02 - Pt was seen by Urology, appreciate input - Pt underwent Cystoscopy and Left ureteral stent placement today 08/31/[address] Ayers - Cont. Flomax - Antiemetics PRN - Antipyretics PRN - Supportive care - DVT prophylaxis with SCDs HTN - Pt is normally on Amlodipine 10 mg PO DAILY, Atenolol 100 mg PO DAILY, Lisinopril 40 mg PO DAILY, and Clonidine HCl 0.2 mg PO BID - Hold Lisinopril and Clonidine at this time, BP is low normal and with BRIAN - Cont. Norvasc - Pt was started on metoprolol at lower dose 50 mg PO BID on 09/02, BP is overall improved. - Clonidine PRN Tachycardia - HR elevated, EKG reveals SR rate of 96 - Pt started on metoprolol at 50 mg PO BID on 09/02 with some improvement - continue to monitor Diabetes mellitus - Hold home Tanzeum 50 mg sub Q Q7D, Jardiance 25 mg PO daily and glimepiride 4 mg PO BID - NovoLog SSI - Accu checks - (09/01) glucose running high, Levemir 5 units SQ BID added Hyperlipidemia - Cont. home meds Hypernatremia - Na 147 (08/31) --> 148 (09/01) --> 148 (09/02) --> 147 (09/03) --> 148 (09/04) - chloride 112 (08/31) --> 116 (09/01) --> 115 (09/02) --> 114 (09/03) --> 115 () - Patient to receive D5W at 50 ml/H x 1 L today - Will recheck BMP in AM PT seven days per week Patient may need home with PT vs SNF at [place] (2) Hydronephrosis concurrent with and due to calculi of kidney and ureter Code(s): N13.2 - Hydronephrosis with renal and ureteral calculous obstruction Status: Acute (3) Leukocytosis Code(s): D72.829 - Elevated white blood cell count, unspecified Status: Acute (4) Acute worsening of stage 3 chronic kidney disease Code(s): N18.3 - Chronic kidney disease, stage 3 (moderate) Status: Acute (5) Diabetes Code(s): E11.9 - Type 2 diabetes mellitus without complications Status: Acute (6) HTN (hypertension) Code(s): I10 - Essential (primary) hypertension Status: Acute (7) Hyperlipidemia Code(s): E78.5 - Hyperlipidemia, unspecified Status: Acute - Attending Attestation Patient examined. Assessment and plan formulated with Aida Terry PA-C. I agree with the above. NA elevated again. Will start IV D5W Repeat BMP in AM If NA remains elevated, consider Nephrology consult Creatinine continues to improve continue IV Rocephin, consider changing to PO levaquin.
[2017-09-04] MEDS ORDERED: Dextrose 5% in Water Inj 1,000 ML IV.CONT SCH (11:00)
[2017-09-05 07:09] LABS: Baso # (Auto) 0.1 th/mm3 (0.0-0.2); Baso % (Auto) 0.5 % (0.0-2.0); Eos # (Auto) 0.1 th/mm3 (0.0-0.4); Eos % (Auto) 0.9 % (0.0-4.0); Hematocrit 42.6 % (39.0-51.0); Hemoglobin 14.3 gm/dL (13.0-17.0); Lymph # (Auto) 1.4 th/mm3 (1.0-4.8); Lymph % (Auto) 14.6 % (9.0-44.0); Mean Corpuscular HGB Conc 33.7 % (32.0-36.0); Mean Corpuscular Hemoglobin 29.7 pg (27.0-34.0); Mean Corpuscular Volume 88.3 fL (80.0-100.0); Mean Platelet Volume 9.2 fL (7.0-11.0); Mono # (Auto) 0.9 th/mm3 (0.0-0.9); Mono % (Auto) 9.2 % (0.0-8.0); Neut # (Auto) 7.2 th/mm3 (1.8-7.7); Neut % (Auto) 74.8 % (16.0-70.0); Platelet Count 238 th/mm3 (150-450); Red Blood Count 4.82 mil/mm3 (4.50-5.90); Red Cell Distribution Width 13.9 % (11.6-17.2); White Blood Count 9.6 th/mm3 (4.0-11.0)
[2017-09-05 07:36] LABS: Calcium 8.9 mg/dL (8.5-10.1); Carbon Dioxide 22.2 meq/L (21.0-32.0)
[2017-09-05 07:40] LABS: Potassium 4.4 meq/L (3.5-5.1)
[2017-09-05] MEDS: Insulin NovoLOG Aspart Correctional Sugar Inj SQ SCH ×2 (08:01→13:58)
[2017-09-05] MEDS: amLODIPine 10 MG Tablet PO SCH (09:18)
[2017-09-05] MEDS: Metoprolol Tartrate 50 MG Tablet PO SCH (09:18)
[2017-09-05] MEDS: Senna/Docusate Sodium 8.6/50 MG Tablet PO SCH (09:18)
[2017-09-05] MEDS: Insulin Detemir Inj 1,000 UNIT/10 ML Vial SQ SCH (09:18)
--- NOTE | 2017-09-05 10:11 | P.PNIM ---
Subjective Interval history: pt doing well. [employer]. Physical Exam Vital signs: Vital Signs 09/04/17 12:00 09/04/17 16:00 09/04/17 20:00 Temperature 98.0 F 97.9 F 97.5 F L Pulse Rate 96 H 94 H 92 H Respiratory Rate 18 18 18 Blood Pressure 122/63 139/99 H 136/66 Pulse Oximetry 100 100 97 09/05/17 00:00 09/05/17 04:00 09/05/17 08:00 Temperature 97.5 F L 97.3 F L 97.9 F Pulse Rate 92 H 86 106 H Respiratory Rate 18 18 20 Blood Pressure 136/66 139/80 142/86 H Pulse Oximetry 97 96 99 Intake & Output 09/04/17 09/05/17 09/05/17 18:59 06:59 18:59 Intake Total 280 / 280 580 / 580 Output Total 2200 / 2200 2201 / 2201 Balance -1920 / -1920 -1621 / -1621 Weight 99.2 kg Intake: Oral 280 / 280 280 / 280 Anesthesia Amount 300 / 300 Output: Urine 2200 / 2200 2200 / 2200 Urine/Stool Mix 1 / Estimated Blood Loss 0 / 0 Other: # Voids 3 Date of Last Bowel Movement 09/02/17 09/04/17 # Bowel Movements 0 0 heent neg heart reg lung cta abd s/nt ext no edema Results - Labs CBC & Chem 7: 09/05/17 06:10 09/05/17 06:10 Laboratory Results - last 24 hr 09/04/17 09/04/17 09/04/17 12:47 16:57 19:30 WBC RBC Hgb Hct MCV MCH MCHC RDW Plt Count MPV Neut % (Auto) Lymph % (Auto) Fergus % (Auto) Eos % (Auto) Baso % (Auto) Neut # (Auto) Lymph # (Auto) Fergus # (Auto) Eos # (Auto) Baso # (Auto) WBC Differential Differential Comment Sodium Potassium Chloride Carbon Dioxide Anion Gap BUN Creatinine Estimated GFR POC Glucose 223 H 307 H 285 H Random Glucose Calcium 09/05/17 09/05/17 09/05/17 06:10 06:10 07:59 WBC 9.6 RBC 4.82 Hgb 14.3 Hct 42.6 MCV 88.3 MCH 29.7 MCHC 33.7 RDW 13.9 Plt Count 238 MPV 9.2 Neut % (Auto) 74.8 H Lymph % (Auto) 14.6 Fergus % (Auto) 9.2 H Eos % (Auto) 0.9 Baso % (Auto) 0.5 Neut # (Auto) 7.2 Lymph # (Auto) 1.4 Fergus # (Auto) 0.9 Eos # (Auto) 0.1 Baso # (Auto) 0.1 WBC Differential . Differential Comment Auto diff final Sodium 146 H Potassium 4.4 Chloride 113 H Carbon Dioxide 22.2 Anion Gap 11 BUN 23 H Creatinine 1.59 H Estimated GFR 52 L POC Glucose 128 H Random Glucose 113 H Calcium 8.9 Microbiology 09/02/17 13:50 Blood - Peripheral Aerobic Blood Culture - Preliminary No growth in 2 days 09/02/17 13:50 Blood - Peripheral Anaerobic Blood Culture - Preliminary No growth in 2 days 09/02/17 13:50 Blood - Peripheral Aerobic Blood Culture - Preliminary No growth in 2 days 09/02/17 13:50 Blood - Peripheral Anaerobic Blood Culture - Preliminary No growth in 2 days 08/30/17 11:46 Blood - Peripheral Aerobic Blood Culture - Final Escherichia coli 08/30/17 11:46 Blood - Peripheral Anaerobic Blood Culture - Final No growth in 5 days 08/30/17 11:51 Blood - Peripheral Aerobic Blood Culture - Final Escherichia coli 08/30/17 11:51 Blood - Peripheral Anaerobic Blood Culture - Final No growth in 5 days - Procedures s/p Cystoscopy and Left ureteral stent placement today 08/31/[address] Ayers Assessment and Plan - Assessment (1) Left nephrolithiasis Code(s): N20.0 - Calculus of kidney Status: Acute Plan: Nephrolithiasis Hydronephrosis Leukocytosis with left shift Shaking chills - Pt is a 72 y/o AAM with Type 2 DM, hypertension, hyperlipidemia, chronic kidney disease stage III, and history of kidney stones in the past. - [place] [facility] [place] with complaints of sudden onset of left flank pain, nausea/vomiting, subjective fevers and shaking chills which began yesterday morning. - Labs in the ED revealed elevated WBC count of 17 with a left shift, worsening baseline CKD with Cr 2.36/BUN 24, GFR 33. - CT Abd/pelvis in the ED revealed a 7 mm obstructing stone in the proximal left ureter causing mild hydronephrosis and induration of the perinephric fat. - Drawn blood cultures x 2 growing e coli - repeat blood culture (09/02) --> ngtd x 2 days - urine culture also growing e coli - WBC 35.8 (08/31) -> 26.9 (09/01) -> 13.2 (09/02) --> 9.9 (09/03) --> 9.1 (09/04) - creatinine 3.27 (08/31) -> 2.25 (09/01) -> 2.03 (09/02) --> 1.74 (09/03) --> 1.66 (09/04) - Zosyn --> changed to Rocephin 09/02 - Pt was seen by Urology, appreciate input - Pt underwent Cystoscopy and Left ureteral stent placement today 08/31/[address] Ayers - Cont. Flomax - Antiemetics PRN - Antipyretics PRN - Supportive care - DVT prophylaxis with SCDs if repeat blood cx ngtd x 72hrs then dc home later today with po abx and close urology f/u HTN - Pt is normally on Amlodipine 10 mg PO DAILY, Atenolol 100 mg PO DAILY, Lisinopril 40 mg PO DAILY, and Clonidine HCl 0.2 mg PO BID - Held Lisinopril and Clonidine at this time, BP was low normal and with BRIAN - Cont. Norvasc - Pt was started on metoprolol at lower dose 50 mg PO BID on 09/02, BP is overall improved. - Clonidine PRN Tachycardia - HR elevated, EKG reveals SR rate of 96 - Pt started on metoprolol at 50 mg PO BID on 09/02 with some improvement - continue to monitor Diabetes mellitus - Hold home Tanzeum 50 mg sub Q Q7D, Jardiance 25 mg PO daily and glimepiride 4 mg PO BID - NovoLog SSI - Accu checks - (09/01) glucose running high, Levemir 5 units SQ BID added Hyperlipidemia - Cont. home meds Hypernatremia - Na 147 (08/31) --> 148 (09/01) --> 148 (09/02) --> 147 (09/03) --> 148 (09/04) - chloride 112 (08/31) --> 116 (09/01) --> 115 (09/02) --> 114 (09/03) --> 115 () - Patient to receive D5W at 50 ml/H x 1 L (2) Hydronephrosis concurrent with and due to calculi of kidney and ureter Code(s): N13.2 - Hydronephrosis with renal and ureteral calculous obstruction Status: Acute (3) Leukocytosis Code(s): D72.829 - Elevated white blood cell count, unspecified Status: Acute (4) Acute worsening of stage 3 chronic kidney disease Code(s): N18.3 - Chronic kidney disease, stage 3 (moderate) Status: Acute (5) Diabetes Code(s): E11.9 - Type 2 diabetes mellitus without complications Status: Acute (6) HTN (hypertension) Code(s): I10 - Essential (primary) hypertension Status: Acute (7) Hyperlipidemia Code(s): E78.5 - Hyperlipidemia, unspecified Status: Acute
[2017-09-05 12:16] VITALS: BP 129/69; PULSE 90; RESP 18; TEMP 98.3; O2SAT 98
--- NOTE | 2017-09-10 16:25 | P.DS ---
Date of admission: 08/30/17 07:56 Primary care physician: Steve Cervantes MD Anticipated date of discharge: 09/05/17 Brief History from admission: Mr. Brown is a 72 y/o AAM with Type 2 DM, hypertension, hyperlipidemia, chronic kidney disease stage III, and history of kidney stones in the past. [place] [facility] with complaints of sudden onset of left flank pain which started earlier that morning. He describes the pain as constant, sharp and stabbing and is nonradiating. He has had associated nausea and vomiting. He denies any abdominal/pelvic pain, testicular pain, or hematuria. He does have some chronic urinary frequency but has had no dysuria. Labs in the ED revealed elevated WBC count of 17 with a left shift, worsening baseline CKD with Cr 2.36/BUN 24, GFR 33. CT Abd/pelvis in the ED revealed a 7 mm obstructing stone in the proximal left ureter causing mild hydronephrosis and induration of the perinephric fat. Pt reports feeling feverish at home and today has had some shaking chills. He is still feeling nauseated this morning. Denies any diarrhea, constipation, chest pain, SOB, or palpitations. Past Medical Hx Essential HTN TITO on CPAP CKD, stage 3 Hx of nephrolithiasis Type 2 diabetes mellitus Diabetic nephropathy/polyneuropathy Hyperlipidemia Gout Obesity GERD/hiatal hernia Vitamin D deficiency Past Surgical Hx EGD/colonoscopy Family Hx Noncontributory Social Hx Denies any alcohol, tobacco or illicit drug use Pt is and lives locally He works at [employer]: Diagnosis - Discharge Diagnosis (1) Left nephrolithiasis Status: Acute (2) Hydronephrosis concurrent with and due to calculi of kidney and ureter Status: Acute (3) Leukocytosis Status: Acute (4) Acute worsening of stage 3 chronic kidney disease Status: Acute (5) Diabetes Status: Acute (6) HTN (hypertension) Status: Acute (7) Hyperlipidemia Status: Acute DS: Medications - Discharge Medications Prescriptions: levofloxacin [Levaquin] 500 mg PO DAILY #7 tab DS: Summary Hospital Course: (1) Left nephrolithiasis Code(s): N20.0 - Calculus of kidney Status: Acute Plan: Nephrolithiasis Hydronephrosis Leukocytosis with left shift Shaking chills - Pt is a 72 y/o AAM with Type 2 DM, hypertension, hyperlipidemia, chronic kidney disease stage III, and history of kidney stones in the past. - [place] [facility] [place] with complaints of sudden onset of left flank pain, nausea/vomiting, subjective fevers and shaking chills which began yesterday morning. - Labs in the ED revealed elevated WBC count of 17 with a left shift, worsening baseline CKD with Cr 2.36/BUN 24, GFR 33. - CT Abd/pelvis in the ED revealed a 7 mm obstructing stone in the proximal left ureter causing mild hydronephrosis and induration of the perinephric fat. - Drawn blood cultures x 2 growing e coli - repeat blood culture (09/02) --> ngtd x 2 days - urine culture also growing e coli - WBC 35.8 (08/31) -> 26.9 (09/01) -> 13.2 (09/02) --> 9.9 (09/03) --> 9.1 (09/04) - creatinine 3.27 (08/31) -> 2.25 (09/01) -> 2.03 (09/02) --> 1.74 (09/03) --> 1.66 (09/04) - Zosyn --> changed to Rocephin 09/02 - Pt was seen by Urology, appreciate input - Pt underwent Cystoscopy and Left ureteral stent placement today 08/31/[address] Ayers - Cont. Flomax - Antiemetics PRN - Antipyretics PRN - Supportive care - DVT prophylaxis with SCDs if repeat blood cx ngtd x 72hrs then dc home later today with po abx and close urology f/u HTN - Pt is normally on Amlodipine 10 mg PO DAILY, Atenolol 100 mg PO DAILY, Lisinopril 40 mg PO DAILY, and Clonidine HCl 0.2 mg PO BID - Held Lisinopril and Clonidine at this time, BP was low normal and with BRIAN - Cont. Norvasc - Pt was started on metoprolol at lower dose 50 mg PO BID on 09/02, BP is overall improved. - Clonidine PRN Diabetes mellitus - Hold home Tanzeum 50 mg sub Q Q7D, Jardiance 25 mg PO daily and glimepiride 4 mg PO BID - NovoLog SSI Hyperlipidemia - Cont. home meds Hypernatremia -improved with 1/2 NS (2) Hydronephrosis concurrent with and due to calculi of kidney and ureter Code(s): N13.2 - Hydronephrosis with renal and ureteral calculous obstruction Status: Acute (3) Leukocytosis Code(s): D72.829 - Elevated white blood cell count, unspecified Status: Acute (4) Acute worsening of stage 3 chronic kidney disease Code(s): N18.3 - Chronic kidney disease, stage 3 (moderate) Status: Acute (5) Diabetes Code(s): E11.9 - Type 2 diabetes mellitus without complications Status: Acute (6) HTN (hypertension) Code(s): I10 - Essential (primary) hypertension Status: Acute (7) Hyperlipidemia Code(s): E78.5 - Hyperlipidemia, unspecified Status: Acute - Time Spent with Patient Total time spent providing and/or coordinating discharge services: - Quality: VTE Deep Vein Thrombosis/Pulmonary Embolism Present on Admission: Yes Exam Vital signs: heart reg lung cta abd s/nt ext no edema Results Procedures completed during hospitalization: s/p Cystoscopy and Left ureteral stent placement today 08/31/[address] Ayers - Impressions ITS Impressions Abdomen/Pelvis CT 08/29/17 22:24 CONCLUSION: 1. 7 mm obstructing stone in the proximal left ureter causing mild hydronephrosis and induration of the perinephric fat. Abdomen X-Ray 08/30/17 00:00 CONCLUSION: Multiple dilated loops of small bowel could be ileus. Follow-up recommended. Discharge Plan - Discharge Disposition Patient Disposition: 01 Discharge Home - Discharge Condition Condition: Stable - Discharge Order Discharge Orders: Discharge Order (Routine); Ordered 09/05/17 Ordered By: Ranulfo Yo - Discharge Details Anticipated Discharge Date: 09/05/17 - Physicians Team Primary Care Provider: Steve Cervantes Attending Provider: Sp Pierce Other Providers: Allan Ayers MD
== END 2017-09-05 16:09 | disposition home or self-care (01) ==
LOC: NEDA 17:03 → NEPD 17:03 → NEDA 08-30 01:35 → N04 08-30 15:39
PROVIDERS: ADMIT Hospitalist; ATTEND Hospitalist